=== PATIENT | male | born 1940 | race Caucasian/White ===

== ENCOUNTER 2016-06-14 11:11 | Emergency (ER) | payer MEDICARE, OTHER ==
[2016-06-14] MEDS ORDERED: NORMAL SALINE 1000 ML 1,000 ML IV ONE ×3 (11:24→19:31)
[2016-06-14 12:09] LABS: VENOUS BLOOD BASE EXCESS 2.7 mmol/L; VENOUS BLOOD HCO3 29.5 mmol/L (20-32); VENOUS BLOOD PCO2 55.1 mmHg (35-63); VENOUS BLOOD PH 7.35 (7.30-7.42)
--- NOTE | 2016-06-14 12:15 | ER Document Report ---
ED General - General Chief Complaint: Blood Pressure Problem Stated Complaint: BLOOD PRESSURE ISSUE Time Seen by Provider: 06/14/16 11:23 TRAVEL OUTSIDE OF THE [place] IN LAST 30 DAYS: No - HPI Patient complains to provider of: hypoxia hypotension Notes: Patient's coming in for evaluation of hypoxia and hypotension. Patient recently had a "cholecystectomy performed due to gangrenous gallbladder with constipation of a bile duct leak. Patient was recently discharged home has been on for approximately a week following up with his doctor at [facility] and found patient mildly hypoxic with SPO2 of 92-90 with a blood pressure systolic 80. Patient is also nauseous at the time. No other complaints transported to ER for further evaluation. Upon evaluation patient is on 2 L of oxygen nasal cannula 100% SPO2 with a blood pressure in the 80s. Patient received approximately 200 mL of normal saline on transport. Patient denies any chest pain abdominal pain. Patient does have sutures course to the abdomen with a CHACHA drain and Nolan in place. Patient states he does state that his Nolan is blocked up. Patient is requesting exchange of Nolan. Denies any fever states chills at home. Patient denies any shortness of breath but is tachypneic upon evaluation. - Related Data Allergies/Adverse Reactions: codeine [Codeine] Allergy (Unknown, Verified 11/02/13 20:58) Sweats Past Medical History - Social History Smoking Status: Unknown if Ever Smoked Family History: Reviewed & Not Pertinent - Past Medical History Cardiac Medical History: Reports: Hx Coronary Artery Disease, Hx Heart Attack - 1988 Denies: Hx Hypertension Pulmonary Medical History: Reports: Hx Pneumonia Denies: Hx Asthma, Hx Bronchitis, Hx COPD Neurological Medical History: Denies: Hx Cerebrovascular Accident, Hx Seizures GI Medical History: Denies: Hx Hepatitis, Hx Hiatal Hernia, Hx Ulcer Musculoskeltal Medical History: Reports Hx Arthritis Infectious Medical History: Denies: Hx Hepatitis Past Surgical History: Denies: Hx Open Heart Surgery, Hx Pacemaker - Immunizations Hx Diphtheria, Pertussis, Tetanus Vaccination: Yes Review of Systems - Review of Systems Constitutional: Other - Hypotension hypoxia tachypnea nausea EENT: No symptoms reported Cardiovascular: No symptoms reported Respiratory: No symptoms reported Gastrointestinal: No symptoms reported Genitourinary: No symptoms reported Male Genitourinary: No symptoms reported Musculoskeletal: No symptoms reported Skin: No symptoms reported Hematologic/Lymphatic: No symptoms reported Neurological/Psychological: No symptoms reported Physical Exam - Vital signs Vitals: Resp 33 H 06/14/16 11:25 Interpretation: Normal - General General appearance: Appears well, Alert - HEENT Head: Normocephalic, Atraumatic Eyes: Normal Pupils: PERRL - Respiratory Respiratory status: No respiratory distress Chest status: Nontender Breath sounds: Normal Chest palpation: Normal - Cardiovascular Rhythm: Regular Heart sounds: Normal auscultation Murmur: No - Abdominal Distension: No distension Bowel sounds: Normal Organomegaly: No organomegaly Notes: Patient has "second scar well-healed cover Steri-Strips no blushing the scrotum signs of infection. Patient also has a CHACHA drain in place with scant amount of serous sinus fluid. Abdomen is appropriately tender no rebound no guarding mild tenderness diffuse - Genitourinary Cremasteric reflex: Normal Scrotum: Normal Notes: Nolan catheter in place - Back Back: Normal, Nontender - Extremities General upper extremity: Normal inspection, Nontender, Normal color, Normal ROM , Normal temperature General lower extremity: Normal inspection, Nontender, Normal color, Normal ROM , Normal temperature, Normal weight bearing. No: Hien's sign - Neurological Neuro grossly intact: Yes Cognition: Normal Orientation: AAOx4 Ryder Coma Scale Eye Opening: Spontaneous [place] Coma Scale Verbal: Oriented [place] Coma Scale Motor: Obeys Commands [place] Coma Scale Total: 15 Speech: Normal Motor strength normal: LUE, RUE, LLE, RLE Sensory: Normal - Psychological Associated symptoms: Normal affect, Normal mood - Skin Skin Temperature: Warm Skin Moisture: Dry Skin Color: Normal Course - Re-evaluation Re-evalutation: 06/14/16 12:16 Concern for possible postoperative infection and PE. Patient will undergo a CTA and CT of his abdomen. When for laboratory return. Patient currently afebrile will go ahead and give 2 L bolus and recheck patient's blood pressure 06/14/16 18:33 Patient's lab work does show significant leukocytosis with a left shift however noted bandemia. Workup shows possible UTI however no definitive source of infection was seen. CT of the chest was negative for PE and infection. CT of the abdomen did show posterior changes. Did discuss with our hospital staff recommended patient be transferred back to [facility] with the patient receive his initial surgery. Discussed the surgical team there and hospital staff Dr. Lal graciously accepted the patient in transfer. Otherwise patient has remained stable received a 2 L bolus here. East and 100 range. Patient does still remain on 2 L of oxygen. Management given antibiotics were given Zosyn sent for Sears possible underlying infection. - Vital Signs Vital signs: Temp Pulse Resp BP Pulse Ox 97.7 F 25 H 103/69 92 06/14/16 11:58 06/14/16 17:45 06/14/16 17:45 06/14/16 17:45 - Laboratory Result Diagrams: 06/14/16 11:49 06/14/16 11:49 Laboratory results interpreted by me: 06/14/16 06/14/16 06/14/16 11:49 11:49 13:45 WBC 26.3 H Hgb 13.3 L RDW 14.1 H Seg Neuts % (Manual) 94 H Lymphocytes % (Manual) 0 L Abs Neuts (Manual) 24.7 H Abs Lymphs (Manual) 0.0 L Abs Monocytes (Manual) 1.6 H BUN 22 H Glucose 125 H Direct Bilirubin 0.5 H Urine Protein 30 H Urine Blood LARGE H Ur Leukocyte Esterase TRACE H Critical Care Note - Critical Care Note Total time excluding time spent on procedures (mins): 35 Comments: Multiple evaluations for initial hypotension Discharge - Discharge Clinical Impression: Dehydration, SIRS (systemic inflammatory response syndrome), Status post cholecystectomy Leukocytosis Qualifiers: Leukocytosis type: unspecified Qualified Code(s): D72.829 - Elevated white blood cell count, unspecified Hypotension Qualifiers: Hypotension type: unspecified hypotension type Qualified Code(s): I95.9 - Hypotension, unspecified Condition: Good Disposition: [facility] Referrals: KIA ALCARAZ MD [Primary Care Provider] - Follow up as needed
[2016-06-14 12:16] LABS: HEMATOCRIT 40.6 % (37.9-51.0); HEMOGLOBIN 13.3 g/dL (13.5-17.0); HGB HCT DIFFERENCE -0.7; MEAN CORPUSCULAR HEMOGLOBIN 28.9 pg (27.0-33.4); MEAN CORPUSCULAR HGB CONC 32.7 g/dL (32.0-36.0); MEAN CORPUSCULAR VOLUME 89 fl (80-97); RED BLOOD COUNT 4.58 10^6/uL (4.35-5.55); RED CELL DISTRIBUTION WIDTH 14.1 % (11.5-14.0); WHITE BLOOD COUNT 26.3 10^3/uL (4.0-10.5)
[2016-06-14] MEDS ORDERED: PIPERACILLIN/TAZOBACTAM 4.5 GM VIAL IV ONE (12:37)
[2016-06-14 12:48] LABS: ALANINE AMINOTRANSFERASE 51 U/L (21-72); ALBUMIN 3.6 g/dL (3.5-5.0); ALKALINE PHOSPHATASE 112 U/L (38-126); ANION GAP 9 (5-19); ASPARTATE AMINO TRANSFERASE 42 U/L (17-59); BILIRUBIN,DIRECT 0.5 mg/dL (0.0-0.4); BILIRUBIN,TOTAL 0.9 mg/dL (0.2-1.3); BLOOD UREA NITROGEN 22 mg/dL (7-20); CALCIUM 8.7 mg/dL (8.4-10.2); CARBON DIOXIDE 25 mmol/L (22-30); CHLORIDE 104 mmol/L (98-107); CREATININE RESULT 1.12 mg/dL (0.52-1.25); GLUCOSE 125 mg/dL (75-110); POTASSIUM 4.5 mmol/L (3.6-5.0); SODIUM 138.4 mmol/L (137-145)
[2016-06-14 12:50] LABS: BASOPHILS % (MANUAL) 0 % (0-2); EOSINOPHILS % (MANUAL) 0 % (0-6); LYMPHOCYTES % (MANUAL) 0 % (13-45); TOTAL CELLS COUNTED 100
[2016-06-14 12:51] LABS: RBC MORPHOLOGY COMMENT NORMO-CYTIC/CHROMIC
[2016-06-14 14:14] LABS: APPEARANCE,URINE SLIGHTLY-CLOUDY; BILIRUBIN,URINE NEGATIVE (NEGATIVE); GLUCOSE, URINE NEGATIVE (NEGATIVE); KETONES,URINE NEGATIVE (NEGATIVE); LEUKOCYTE ESTERASE,URINE TRACE (NEGATIVE); NITRITE,URINE NEGATIVE (NEGATIVE); PROTEIN,URINE 30 mg/dL (NEGATIVE); URINE SPECIFIC GRAVITY 1.046; UROBILINOGEN,URINE NEGATIVE mg/dL (<2.0)
--- NOTE | 2016-06-14 17:07 | EKG REPORT ---
SEVERITY:- ABNORMAL ECG - SINUS RHYTHM RIGHT BUNDLE BRANCH BLOCK : Confirmed by: Dorina Moser 14-Jun-2016 17:06:28
[2016-06-14] MEDS ORDERED: PIPERACILLIN/TAZOBACTAM 4.5 GM VIAL IV SCH (19:30)
[2016-06-14] MEDS ORDERED: ONDANSETRON HCL INJ/PF 4 MG/2 ML SDV IV ONE (20:35)
[2016-06-15] MEDS: ONDANSETRON HCL INJ/PF 4 MG/2 ML SDV IV PRN ×2 (03:45→07:43)
[2016-06-15] MEDS: PIPERACILLIN/TAZOBACTAM 4.5 GM VIAL IV SCH ×2 (03:55→10:26)
[2016-06-15 09:27] LABS: ABSOLUTE EOSINOPHILS # (AUTO) 0.1 10^3/uL (0.0-0.6); ABSOLUTE LYMPHOCYTES (AUTO) 0.6 10^3/uL (0.5-4.7); ABSOLUTE MONOCYTES (AUTO) 1.4 10^3/uL (0.1-1.4); ABSOLUTE NEUT (AUTO) 8.2 10^3/uL (1.7-8.2); BASOPHILS % (AUTO) 0.4 % (0-2); EOSINOPHILS % (AUTO) 1.3 % (0-6); HEMATOCRIT 36.3 % (37.9-51.0); HEMOGLOBIN 11.8 g/dL (13.5-17.0); HGB HCT DIFFERENCE -0.9; LYMPHOCYTES % (AUTO) 6.2 % (13-45); MEAN CORPUSCULAR HEMOGLOBIN 28.9 pg (27.0-33.4); MEAN CORPUSCULAR HGB CONC 32.6 g/dL (32.0-36.0); MEAN CORPUSCULAR VOLUME 89 fl (80-97); MONOCYTES % (AUTO) 13.7 % (3-13); RED BLOOD COUNT 4.09 10^6/uL (4.35-5.55); RED CELL DISTRIBUTION WIDTH 14.2 % (11.5-14.0); SEGMENTED NEUTROPHILS % (AUTO) 78.4 % (42-78); WHITE BLOOD COUNT 10.4 10^3/uL (4.0-10.5)
[2016-06-15 09:45] LABS: ALANINE AMINOTRANSFERASE 44 U/L (21-72); ALKALINE PHOSPHATASE 78 U/L (38-126); ANION GAP 8 (5-19); ASPARTATE AMINO TRANSFERASE 32 U/L (17-59); BILIRUBIN,DIRECT 0.5 mg/dL (0.0-0.4); BILIRUBIN,TOTAL 0.7 mg/dL (0.2-1.3); BLOOD UREA NITROGEN 16 mg/dL (7-20); CALCIUM 7.8 mg/dL (8.4-10.2); CARBON DIOXIDE 24 mmol/L (22-30); CHLORIDE 107 mmol/L (98-107); CREATININE RESULT 0.88 mg/dL (0.52-1.25); GLUCOSE 87 mg/dL (75-110); POTASSIUM 4.4 mmol/L (3.6-5.0); SODIUM 139.1 mmol/L (137-145)
[2016-06-15] MEDS ORDERED: ONDANSETRON 4 MG TAB.RAPDIS PO PRN (10:33)
[2016-06-15] MEDS ORDERED: OXYCODONE-ACETAMINOPHEN 5-325 MG TABLET PO PRN (10:33)
[2016-06-15] MEDS ORDERED: MULTIVITAMIN TABLET PO ONE (11:00)
[2016-06-15] MEDS ORDERED: METOPROLOL TARTRATE 50 MG TABLET PO ONE (11:00)
[2016-06-15] MEDS ORDERED: ASPIRIN 81 MG TABLET, CHEWABLE PO ONE (11:00)
[2016-06-15] MEDS ORDERED: ASCORBIC ACID 500 MG TABLET PO ONE (11:00)
[2016-06-15] MEDS ORDERED: NIACIN 500 MG TABLET.SA PO ONE (11:00)
[2016-06-15] MEDS ORDERED: VITAMIN E (DL, ACETATE) 400 UNIT CAPSULE PO ONE (11:00)
[2016-06-15 12:37] VITALS: BP 123/70
[2016-06-15] MEDS ORDERED: METOPROLOL TARTRATE 50 MG TABLET PO SCH (22:00)
[2016-06-15] MEDS ORDERED: ATORVASTATIN CALCIUM 20 MG TABLET PO SCH (22:00)
[2016-06-16] MEDS ORDERED: ASCORBIC ACID 500 MG TABLET PO SCH (10:00)
[2016-06-16] MEDS ORDERED: ASPIRIN 81 MG TABLET, CHEWABLE PO SCH (10:00)
[2016-06-16] MEDS ORDERED: VITAMIN E (DL, ACETATE) 400 UNIT CAPSULE PO SCH (10:00)
[2016-06-16] MEDS ORDERED: MULTIVITAMIN TABLET PO SCH (10:00)
[2016-06-16] MEDS ORDERED: NIACIN 500 MG TABLET.SA PO SCH (10:00)
[2016-06-16] MEDS ORDERED: VITAMIN E PO SCH (10:00)
[2016-06-16] MEDS ORDERED: UBIDECARENONE PO SCH (10:00)
[2016-06-16] MEDS ORDERED: (PENDING PHARMACY ID) (Multivitamin [Multivitamins] 1 CAP) PO SCH (10:00)
[2016-06-16] MEDS ORDERED: NIACIN PO SCH (10:00)
[2016-06-16] MEDS ORDERED: (PENDING PHARMACY ID) (B2/Vit A,C & E/Lut/Zeaxanth/Mn [Icaps Tablet] 1 TAB) PO SCH (10:00)
== END 2016-06-15 13:01 | disposition short-term general hospital (02) ==
LOC: ER 11:11
DX: E86.0 Dehydration (principal); R65.10 Systemic inflammatory response syndrome (SIRS) of non-infectious origin without acute organ dysfunction; D72.829 Elevated white blood cell count, unspecified; I95.9 Hypotension, unspecified; R09.02 Hypoxemia; R11.0 Nausea; I25.10 Atherosclerotic heart disease of native coronary artery without angina pectoris; Z90.49 Acquired absence of other specified parts of digestive tract; I25.2 Old myocardial infarction; Z88.6 Allergy status to analgesic agent
CPT/HCPCS: 93005; 96376; 99291; 96361; 96375; 96365; 96366; 36415; 87040; 87086; 83690; 85025; 80053; 81001; 84484; 82803; 83605; 71275; 74177; 93010; J2405 ×2; J7030 ×2; J2543 ×2

== ENCOUNTER → 2017-04-04 | Outpatient (CLI) | payer MEDICARE, OTHER ==
--- NOTE | 2017-04-04 16:27 | RADIOLOGY REPORT (SQ) ---
EXAM DESCRIPTION: SHOULDER LEFT 2 OR MORE VIEWS COMPLETED DATE/TIME: 04/04/2017 2:56 pm REASON FOR STUDY: PAIN IN LEFT SHOULDER M25.512 PAIN IN LEFT SHOULDER COMPARISON: None. NUMBER OF VIEWS: Three views. TECHNIQUE: Internal rotation, external rotation, and Y view images acquired of the left shoulder. LIMITATIONS: None. FINDINGS: MINERALIZATION: Normal. BONES: No acute fracture or dislocation. No worrisome bone lesions. JOINTS: No dislocation. Mild degenerative changes involving the AC joint and glenohumeral joint. VISUALIZED LUNGS AND RIBS: Small band of atelectasis or scarring in the left mid lung SOFT TISSUES: No radiopaque foreign body. OTHER: No other significant finding. IMPRESSION: Mild degenerative changes involving the left shoulder. TECHNICAL DOCUMENTATION: JOB ID: [id number] [employer] All Rights Reserved Reading location - IP/workstation name: [email or web address]
== END ==
LOC: OD 14:32
PROVIDERS: ATTEND Physician Assistant
DX: M25.512 Pain in left shoulder (principal)

== ENCOUNTER 2017-09-28 12:56 | Inpatient (IN) | payer MEDICARE, OTHER ==
--- NOTE | 2017-09-28 13:33 | ER Document Report ---
ED Medical Screen (RME) - General Chief Complaint: Sinus Congestion Stated Complaint: COLD Time Seen by Provider: 09/28/17 13:29 TRAVEL OUTSIDE OF THE [place] IN LAST 30 DAYS: No - HPI Notes: 09/28/17 13:32 Patient is a patel from PCP outpatient chest x-ray showing pneumonia and states recurrent pneumonia multiple times this year last antibiotics was in August - Related Data Allergies/Adverse Reactions: codeine [Codeine] Allergy (Unknown, Verified 09/28/17 12:57) Sweats Past Medical History - Past Medical History Cardiac Medical History: Reports: Hx Coronary Artery Disease, Hx Heart Attack - 1988 Denies: Hx Hypertension Pulmonary Medical History: Reports: Hx Pneumonia Denies: Hx Asthma, Hx Bronchitis, Hx COPD Neurological Medical History: Denies: Hx Cerebrovascular Accident, Hx Seizures GI Medical History: Denies: Hx Hepatitis, Hx Hiatal Hernia, Hx Ulcer Musculoskeltal Medical History: Reports Hx Arthritis Infectious Medical History: Denies: Hx Hepatitis Past Surgical History: Reports: Hx Bowel Surgery - part of colon removed. Denies: Hx Open Heart Surgery, Hx Pacemaker - Immunizations Hx Diphtheria, Pertussis, Tetanus Vaccination: Yes Review of Systems - Review of Systems Respiratory: Cough Physical Exam - Vital signs Vitals: Temp Pulse Resp BP Pulse Ox 97.5 F 56 L 20 143/66 H 96 09/28/17 13:00 09/28/17 13:00 09/28/17 13:00 09/28/17 13:00 09/28/17 13:00 - Respiratory Respiratory status: No respiratory distress Chest status: Nontender Chest palpation: Normal - Cardiovascular Rhythm: Regular Heart sounds: Normal auscultation Course - Vital Signs Vital signs: Temp Pulse Resp BP Pulse Ox 97.5 F 56 L 20 143/66 H 96 09/28/17 13:22 09/28/17 13:22 09/28/17 13:22 09/28/17 13:22 09/28/17 13:22 Doctor's Discharge - Discharge Referrals: KIA ALCARAZ MD [Primary Care Provider] - Follow up as needed
[2017-09-28 14:08] LABS: ABSOLUTE BASOPHILS # (AUTO) 0.1 10^3/uL (0.0-0.2); ABSOLUTE EOSINOPHILS # (AUTO) 0.2 10^3/uL (0.0-0.6); ABSOLUTE LYMPHOCYTES (AUTO) 0.8 10^3/uL (0.5-4.7); ABSOLUTE MONOCYTES (AUTO) 1.8 10^3/uL (0.1-1.4); ABSOLUTE NEUT (AUTO) 10.4 10^3/uL (1.7-8.2); BASOPHILS % (AUTO) 1.1 % (0-2); EOSINOPHILS % (AUTO) 1.2 % (0-6); HEMATOCRIT 49.7 % (37.9-51.0); HEMOGLOBIN 16.6 g/dL (13.5-17.0); LYMPHOCYTES % (AUTO) 5.8 % (13-45); MEAN CORPUSCULAR HEMOGLOBIN 29.9 pg (27.0-33.4); MEAN CORPUSCULAR HGB CONC 33.4 g/dL (32.0-36.0); MEAN CORPUSCULAR VOLUME 90 fl (80-97); MONOCYTES % (AUTO) 13.7 % (3-13); PLATELET COUNT 222 10^3/uL (150-450); RED BLOOD COUNT 5.55 10^6/uL (4.35-5.55); RED CELL DISTRIBUTION WIDTH 13.9 % (11.5-14.0); SEGMENTED NEUTROPHILS % (AUTO) 78.2 % (42-78); TOTAL CELLS COUNTED % (AUTO) 100 %; WHITE BLOOD COUNT 13.4 10^3/uL (4.0-10.5)
[2017-09-28 14:25] LABS: ALANINE AMINOTRANSFERASE 23 U/L (21-72); ALBUMIN 4.6 g/dL (3.5-5.0); ALKALINE PHOSPHATASE 125 U/L (38-126); ANION GAP 15 (5-19); ASPARTATE AMINO TRANSFERASE 26 U/L (17-59); BILIRUBIN,DIRECT 0.4 mg/dL (0.0-0.4); BILIRUBIN,TOTAL 0.7 mg/dL (0.2-1.3); BLOOD UREA NITROGEN 18 mg/dL (7-20); CALCIUM 9.7 mg/dL (8.4-10.2); CARBON DIOXIDE 27 mmol/L (22-30); CHLORIDE 101 mmol/L (98-107); GLUCOSE 109 mg/dL (75-110); POTASSIUM 4.8 mmol/L (3.6-5.0); SODIUM 142.6 mmol/L (137-145); TOTAL PROTEIN 9.1 g/dL (6.3-8.2)
[2017-09-28] MEDS ORDERED: IPRATROPIUM/ALBUTEROL 0.5-2.5 MG/3 ML AMPUL NEB ONE ×2 (14:28→15:04)
--- NOTE | 2017-09-28 14:29 | ER Document Report ---
ED General - General Chief Complaint: Sinus Congestion Stated Complaint: COLD Time Seen by Provider: 09/28/17 13:29 Mode of Arrival: Ambulatory Information source: Patient Notes: This is a 77-year-old man with a history of a cardiomyopathy, long history of smoking, recurrent episodes of pneumonia, presents to the emergency room with shortness of breath, dyspnea on exertion, productive cough and sinus congestion. TRAVEL OUTSIDE OF THE [place] IN LAST 30 DAYS: No - HPI Onset: Last week Onset/Duration: Gradual Quality of pain: No pain Severity: None Pain Level: Denies Associated symptoms: denies: Nonproductive cough, Productive cough, Shortness of breath Exacerbated by: Denies Relieved by: Denies Similar symptoms previously: No Recently seen / treated by doctor: No - Related Data Allergies/Adverse Reactions: codeine [Codeine] Allergy (Unknown, Verified 09/28/17 12:57) Sweats Past Medical History - General Information source: Patient - Social History Smoking Status: Former Smoker Cigarette use (# per day): No - Quit many years ago Chew tobacco use (# tins/day): No Frequency of alcohol use: None Drug Abuse: None Lives with: Family Family History: Reviewed & Not Pertinent Patient has suicidal ideation: No Patient has homicidal ideation: No - Past Medical History Cardiac Medical History: Reports: Hx Coronary Artery Disease, Hx Heart Attack - 1988 Denies: Hx Hypertension Pulmonary Medical History: Reports: Hx Pneumonia Denies: Hx Asthma, Hx Bronchitis, Hx COPD Neurological Medical History: Denies: Hx Cerebrovascular Accident, Hx Seizures Renal/ Medical History: Denies: Hx Peritoneal Dialysis GI Medical History: Denies: Hx Hepatitis, Hx Hiatal Hernia, Hx Ulcer Musculoskeletal Medical History: Reports Hx Arthritis Infectious Medical History: Denies: Hx Hepatitis Past Surgical History: Reports: Hx Bowel Surgery - part of colon removed. Denies: Hx Open Heart Surgery, Hx Pacemaker - Immunizations Hx Diphtheria, Pertussis, Tetanus Vaccination: Yes Review of Systems - Review of Systems Constitutional: denies: Chills, Fever EENT: No symptoms reported Cardiovascular: See HPI, Dyspnea, Other - Chest tightness. denies: Palpitations , Heart racing Respiratory: See HPI, Short of breath, Wheezing Gastrointestinal: No symptoms reported Genitourinary: No symptoms reported Male Genitourinary: No symptoms reported Musculoskeletal: No symptoms reported Skin: No symptoms reported Hematologic/Lymphatic: No symptoms reported Neurological/Psychological: No symptoms reported Physical Exam - Vital signs Vitals: Temp Pulse Resp BP Pulse Ox 97.5 F 56 L 20 143/66 H 96 09/28/17 13:00 09/28/17 13:00 09/28/17 13:00 09/28/17 13:00 09/28/17 13:00 Notes: Physical exam: GENERAL: 77-year-old man, alert and oriented 3, appears short of breath. Oxygen saturation 96% while resting in the bed, he does appear significantly short of breath on just minimal ambulation around the ER with an oxygen saturation dropping to 87% on room air HEAD: Atraumatic, normocephalic. EYES: Pupils equal round and reactive to light, extraocular movements intact, sclera anicteric, conjunctiva are normal. ENT: TMs normal, nares patent, oropharynx clear without exudates. Moist mucous membranes. NECK: Normal range of motion, supple without obvious mass or JVD. LUNGS: Lateral wheezing and rhonchi HEART: Regular rate and rhythm without murmurs, rubs or gallops. ABDOMEN: Soft, normoactive bowel sounds. No tenderness to palpation. No guarding, no rebound. No masses appreciated. EXTREMITIES: Normal range of motion, no pitting or edema. No clubbing or cyanosis. NEUROLOGICAL: Cranial nerves II through XII grossly intact. Normal speech, moving all extremities. PSYCH: Normal mood, normal affect. SKIN: Warm, Dry, normal turgor, no rashes or lesions noted. Course - Vital Signs Vital signs: Temp Pulse Resp BP Pulse Ox 97.9 F 58 L 19 139/67 H 97 09/28/17 18:52 09/28/17 18:52 09/28/17 18:52 09/28/17 18:52 09/28/17 18:52 - Laboratory Result Diagrams: 09/28/17 13:50 09/28/17 13:50 Laboratory results interpreted by me: 09/28/17 09/28/17 13:50 13:50 WBC 13.4 H Seg Neutrophils % 78.2 H Lymphocytes % 5.8 L Monocytes % 13.7 H Absolute Neutrophils 10.4 H Absolute Monocytes 1.8 H Total Protein 9.1 H - Diagnostic Test Radiology reviewed: Image reviewed, Reports reviewed - X-ray shows no obvious infiltrates - EKG Interpretation by Me Rate: Normal Rhythm: NSR - EKG shows normal sinus rhythm with a ventricular rate of 80, left anterior fascicular block, PVCs, no acute ST-T wave changes Discharge - Discharge Clinical Impression: COPD exacerbation Condition: Stable Disposition: ADMITTED INPATIENT Admitting Provider: Hospitalist - Dr Solis Unit Admitted: Telemetry
--- NOTE | 2017-09-28 14:44 | RADIOLOGY REPORT (SQ) ---
EXAM DESCRIPTION: CHEST 2 VIEWS COMPLETED DATE/TIME: 09/28/2017 2:17 pm REASON FOR STUDY: cold cough eval pna COMPARISON: October 2013 EXAM PARAMETERS: NUMBER OF VIEWS: two views TECHNIQUE: Digital Frontal and Lateral radiographic views of the chest acquired. RADIATION DOSE: NA LIMITATIONS: none FINDINGS: LUNGS AND PLEURA: No opacities, masses or pneumothorax. No pleural effusion. Linear scarr ing or subsegmental atelectasis is identified in the left mid lung feel P MEDIASTINUM AND HILAR STRUCTURES: No masses or contour abnormalities. HEART AND VASCULAR STRUCTURES: Heart normal size. No evidence for failure. BONES: No acute findings. HARDWARE: None in the chest. OTHER: No other significant finding. IMPRESSION: NO ACUTE RADIOGRAPHIC FINDING IN THE CHEST. TECHNICAL DOCUMENTATION: JOB ID: [id number] [employer]- All Rights Reserved Reading location - IP/workstation name: [email or web address]
[2017-09-28] MEDS ORDERED: ACETAMINOPHEN 325 MG TABLET PO ONE (14:49)
[2017-09-28] MEDS ORDERED: METHYLPREDNISOLONE INJ 125 MG/2 ML SDV IV ONE (15:03)
[2017-09-28] MEDS ORDERED: CEFTRIAXONE 1 GM/D5W RTU 1 GM/50 ML RTUPB IV ONE (15:04)
[2017-09-28] MEDS ORDERED: CEFTRIAXONE INJ 1000 MG VIAL ONE (15:21)
[2017-09-28] MEDS ORDERED: TEMAZEPAM 7.5 MG CAPSULE PO PRN (16:28)
[2017-09-28] MEDS ORDERED: MAG HYDROX/AL HYDROX/SIMETH SUSP 30 ML UDCUP PO PRN (16:28)
[2017-09-28] MEDS ORDERED: ACETAMINOPHEN 325 MG TABLET PO PRN (16:28)
[2017-09-28] MEDS ORDERED: OXYCODONE-ACETAMINOPHEN 5-325 MG TABLET PO PRN (16:28)
[2017-09-28] MEDS ORDERED: PROMETHAZINE HCL INJ 25 MG/1 ML VIAL IV PRN (16:28)
[2017-09-28] MEDS ORDERED: IPRATROPIUM/ALBUTEROL 0.5-2.5 MG/3 ML AMPUL NEB PRN (16:35)
--- NOTE | 2017-09-28 16:47 | PDOC H&P ---
History of Present Illness Admission Date/PCP: 09/28/17 15:40 KIA ALCARAZ MD Patient complains of: As into the emergency room with complaints of difficulty breathing and shortness of breath History of Present Illness: YULY RODRIGUEZ is a 77 year old male Patient presents with complains of difficulty breathing and shortness of breath. Said this had been going on for a few days but has recently gotten worse. He has a history of sinusitis but currently denies any chest pain nausea vomiting. He has a history of underlying coronary artery disease but said he had a recent cardiology workup including cardiac cath and he was told that he did not need a stent at this time. He denies any fever, dizziness, nausea vomiting Past Medical History Cardiac Medical History: Reports: Coronary Artery Disease, Myocardial Infarction - 1988 Denies: Hypertension Pulmonary Medical History: Reports: Pneumonia Denies: Asthma, Bronchitis, Chronic Obstructive Pulmonary Disease (COPD) Neurological Medical History: Denies: Seizures GI Medical History: Denies: Hepatitis, Hiatal Hernia Musculoskeltal Medical History: Reports: Arthritis Hematology: Denies: Anemia, Sickle Cell Disease Past Surgical History Past Surgical History: Denies: Pacemaker Social History Information Source: Patient Smoking Status: Former Smoker - Advance Directive Resuscitation Status: Full Code Family History Family History: Reviewed & Not Pertinent Parental Family History Reviewed: No Children Family History Reviewed: Yes Sibling(s) Family History Reviewed.: Yes Medication/Allergy Home Medications: Ascorbic Acid [Vitamin C] 1,000 mg PO DAILY 09/28/17 Aspirin [Aspirin EC] 81 mg PO DAILY 09/28/17 Furosemide [Lasix 20 mg Tablet] 20 mg PO DAILY 09/28/17 Gemfibrozil [Lopid 600 mg Tablet] 600 mg PO Q12 09/28/17 Lisinopril [Zestril] 5 mg PO DAILY 09/28/17 Metoprolol Tartrate [Lopressor 50 mg Tablet] 50 mg PO Q12 09/28/17 Multivitamin [Multiple Vitamins] 1 tab PO DAILY 09/28/17 Omeprazole 40 mg PO DAILY 09/28/17 Potassium Chloride [Klor-Con 10 Meq Capsule ER] 10 meq PO DAILY 09/28/17 Vit A/Vit C/Vit E/Zinc/Copper [Preservision Areds Tablet] 1 tab PO DAILY Vitamin E Mixed [Vitamin E] 400 unit PO DAILY 09/28/17 Allergies/Adverse Reactions: codeine [Codeine] Allergy (Unknown, Verified 09/28/17 12:57) Sweats Review of Systems All systems: reviewed and no additional remarkable complaints except as stated Physical Exam Vital Signs: Temp Pulse Resp BP Pulse Ox 97.5 F 56 L 20 143/66 H 96 09/28/17 13:22 09/28/17 13:22 09/28/17 13:22 09/28/17 13:22 09/28/17 13:22 General appearance: PRESENT: no acute distress, well-developed, well-nourished Head exam: PRESENT: atraumatic, normocephalic Eye exam: PRESENT: conjunctiva pink, EOMI, PERRLA. ABSENT: scleral icterus Ear exam: PRESENT: normal external ear exam Mouth exam: PRESENT: moist, tongue midline Neck exam: ABSENT: carotid bruit, JVD, lymphadenopathy, thyromegaly Respiratory exam: PRESENT: decreased breath sounds, symmetrical, unlabored. ABSENT: rales, rhonchi, wheezes Cardiovascular exam: PRESENT: RRR. ABSENT: diastolic murmur, rubs, systolic murmur Pulses: PRESENT: normal dorsalis pedis pul Vascular exam: PRESENT: normal capillary refill GI/Abdominal exam: PRESENT: normal bowel sounds, soft. ABSENT: distended, guarding, mass, organolmegaly, rebound, tenderness Rectal exam: PRESENT: deferred Extremities exam: PRESENT: full ROM. ABSENT: calf tenderness, clubbing, pedal edema Neurological exam: PRESENT: alert, awake, oriented to person, oriented to place , oriented to time, oriented to situation, CN II-XII grossly intact. ABSENT: motor sensory deficit Psychiatric exam: PRESENT: appropriate affect, normal mood. ABSENT: homicidal ideation, suicidal ideation Skin exam: PRESENT: dry, intact, warm. ABSENT: cyanosis, rash Results Laboratory Results: 09/28/17 13:50 09/28/17 13:50 MCV 90 fl (80-97) 09/28/17 13:50 MCH 29.9 pg (27.0-33.4) 09/28/17 13:50 MCHC 33.4 g/dL (32.0-36.0) 09/28/17 13:50 RDW 13.9 % (11.5-14.0) 09/28/17 13:50 Seg Neutrophils % 78.2 % (42-78) H 09/28/17 13:50 Lymphocytes % 5.8 % (13-45) L 09/28/17 13:50 Monocytes % 13.7 % (3-13) H 09/28/17 13:50 Eosinophils % 1.2 % (0-6) 09/28/17 13:50 Basophils % 1.1 % (0-2) 09/28/17 13:50 Absolute Neutrophils 10.4 10^3/uL (1.7-8.2) H 09/28/17 13:50 Absolute Lymphocytes 0.8 10^3/uL (0.5-4.7) 09/28/17 13:50 Absolute Monocytes 1.8 10^3/uL (0.1-1.4) H 09/28/17 13:50 Absolute Eosinophils 0.2 10^3/uL (0.0-0.6) 09/28/17 13:50 Absolute Basophils 0.1 10^3/uL (0.0-0.2) 09/28/17 13:50 Chloride 101 mmol/L (98-107) 09/28/17 13:50 Carbon Dioxide 27 mmol/L (22-30) 09/28/17 13:50 Anion Gap 15 (5-19) 09/28/17 13:50 Est GFR ( Amer) > 60 (>60) 09/28/17 13:50 Est GFR (Non-Af Amer) > 60 (>60) 09/28/17 13:50 Glucose 109 mg/dL (75-110) 09/28/17 13:50 Calcium 9.7 mg/dL (8.4-10.2) 09/28/17 13:50 Magnesium 1.9 mg/dL (1.6-2.3) 09/28/17 13:50 Total Bilirubin 0.7 mg/dL (0.2-1.3) 09/28/17 13:50 AST 26 U/L (17-59) 09/28/17 13:50 ALT 23 U/L (21-72) 09/28/17 13:50 Alkaline Phosphatase 125 U/L (38-126) 09/28/17 13:50 Total Protein 9.1 g/dL (6.3-8.2) H 09/28/17 13:50 Albumin 4.6 g/dL (3.5-5.0) 09/28/17 13:50 Impressions: Chest X-Ray 09/28/17 13:31 IMPRESSION: NO ACUTE RADIOGRAPHIC FINDING IN THE CHEST. Assessment & Plan - Diagnosis (1) COPD exacerbation Is this a current diagnosis for this admission?: Yes Plan: We will treat with steroids IV as well as bronchodilators. Patient has a remote history of smoking but says he does not smoke anymore (2) Acute respiratory failure Qualifiers: Respiratory failure complication: hypoxia Qualified Code(s): J96.01 - Acute respiratory failure with hypoxia Is this a current diagnosis for this admission?: Yes Plan: Secondary to COPD says it never been diagnosed with COPD however has a 50-pack- year smoking history. Will continue with oxygen support as needed - Time Time Spent: 30 to 50 Minutes Medications reviewed and adjusted accordingly: Yes Anticipated discharge: Home Within: within 72 hours - Inpatient Certification Based on my medical assessment, after consideration of the patient's comorbidities, presenting symptoms, or acuity I expect that the services needed warrant INPATIENT care.: Yes Medical Necessity: Need for Nebulizer Therapy and Monitoring of Response, Risk of Complication if Not Cared For in Hospital
[2017-09-28] MEDS ORDERED: ENOXAPARIN SODIUM INJ 40 MG/0.4 ML DISP.SYRIN SUBCUT ONE (17:00)
[2017-09-28] MEDS ORDERED: CEFTRIAXONE SODIUM 1,000 MG in NORMAL SALINE 50 ML IV SCH (18:00)
[2017-09-28] MEDS: IPRATROPIUM/ALBUTEROL 0.5-2.5 MG/3 ML AMPUL NEB SCH (22:04)
[2017-09-28] MEDS: GEMFIBROZIL 600 MG TABLET PO SCH (22:30)
[2017-09-28] MEDS: METOPROLOL TARTRATE 50 MG TABLET PO SCH (22:30)
[2017-09-28] MEDS: METHYLPREDNISOLONE INJ 40 MG/1 ML SDV IV SCH (22:30)
[2017-09-28] MEDS: FAMOTIDINE 20 MG TABLET PO SCH (22:39)
[2017-09-29] MEDS: METHYLPREDNISOLONE INJ 40 MG/1 ML SDV IV SCH (05:12)
[2017-09-29 05:29] LABS: HEMATOCRIT 43.5 % (37.9-51.0); MEAN CORPUSCULAR HEMOGLOBIN 30.7 pg (27.0-33.4); MEAN CORPUSCULAR HGB CONC 34.5 g/dL (32.0-36.0); MEAN CORPUSCULAR VOLUME 89 fl (80-97); PLATELET COUNT 139 10^3/uL (150-450); RED CELL DISTRIBUTION WIDTH 13.6 % (11.5-14.0)
[2017-09-29 05:53] LABS: ANION GAP 14 (5-19); BLOOD UREA NITROGEN 21 mg/dL (7-20); CALCIUM 9.2 mg/dL (8.4-10.2); CARBON DIOXIDE 23 mmol/L (22-30); CHLORIDE 103 mmol/L (98-107); GLUCOSE 166 mg/dL (75-110); POTASSIUM 4.6 mmol/L (3.6-5.0); SODIUM 140.3 mmol/L (137-145)
[2017-09-29] MEDS: IPRATROPIUM/ALBUTEROL 0.5-2.5 MG/3 ML AMPUL NEB SCH ×3 (08:34→20:08)
--- NOTE | 2017-09-29 09:11 | EKG REPORT ---
SEVERITY:- ABNORMAL ECG - SINUS RHYTHM VENTRICULAR BIGEMINY RIGHT BUNDLE BRANCH BLOCK PROBABLE INFERIOR INFARCT, AGE INDETERMINATE : Confirmed by: Dorina Moser 29-Sep-2017 09:11:03
[2017-09-29] MEDS ORDERED: CEFTRIAXONE 1 GM/D5W RTU 1 GM/50 ML RTUPB IV SCH (10:00)
[2017-09-29] MEDS: FAMOTIDINE 20 MG TABLET PO SCH ×2 (10:19→21:53)
[2017-09-29] MEDS: ASCORBIC ACID 500 MG TABLET PO SCH (10:19)
[2017-09-29] MEDS: BENZOCAINE/MENTHOL SORE THROAT LOZENGE BUCCAL PRN ×2 (10:19→21:53)
[2017-09-29] MEDS: METOPROLOL TARTRATE 50 MG TABLET PO SCH ×2 (10:19→21:53)
[2017-09-29] MEDS: DOCUSATE SODIUM 100 MG CAPSULE PO SCH (10:20)
[2017-09-29] MEDS: MULTIVITAMIN TABLET PO SCH (10:20)
[2017-09-29] MEDS: GEMFIBROZIL 600 MG TABLET PO SCH ×2 (10:20→21:53)
[2017-09-29] MEDS: ASPIRIN 81 MG TABLET, ENT COATED PO SCH (10:20)
[2017-09-29] MEDS: LISINOPRIL 5 MG TABLET PO SCH (10:20)
[2017-09-29] MEDS: FUROSEMIDE 20 MG TABLET PO SCH (10:21)
[2017-09-29] MEDS: ENOXAPARIN SODIUM INJ 40 MG/0.4 ML DISP.SYRIN SUBCUT SCH (10:22)
--- NOTE | 2017-09-29 14:21 | PDOC PROGRESS REPORT ---
Subjective Progress Note for:: 09/29/17 Subjective:: Patient was admitted with difficulty breathing and shortness of breath. He was thought to have a COPD exacerbation although patient denies any prior history of COPD. He does have a 50 year smoking history. He feels much better today. Still feels short of breath but improved. Reason For Visit: ACUTE RESPIRATORY FAILURE, COPD Physical Exam Vital Signs: Temp Pulse Resp BP Pulse Ox 98.3 F 81 14 121/74 94 09/29/17 11:30 09/29/17 13:41 09/29/17 13:41 09/29/17 11:30 09/29/17 13:41 Intake & Output 09/28/17 09/29/17 09/30/17 06:59 06:59 06:59 Intake Total 592 Balance 592 Weight 85 kg General appearance: PRESENT: no acute distress, well-developed, well-nourished Head exam: PRESENT: atraumatic, normocephalic Eye exam: PRESENT: conjunctiva pink, EOMI, PERRLA. ABSENT: scleral icterus Ear exam: PRESENT: normal external ear exam Mouth exam: PRESENT: moist, tongue midline Neck exam: ABSENT: carotid bruit, JVD, lymphadenopathy, thyromegaly Respiratory exam: PRESENT: clear to auscultation thong. ABSENT: rales, rhonchi, wheezes Cardiovascular exam: PRESENT: RRR. ABSENT: diastolic murmur, rubs, systolic murmur Pulses: PRESENT: normal dorsalis pedis pul Vascular exam: PRESENT: normal capillary refill GI/Abdominal exam: PRESENT: normal bowel sounds, soft. ABSENT: distended, guarding, mass, organolmegaly, rebound, tenderness Rectal exam: PRESENT: deferred Extremities exam: PRESENT: full ROM. ABSENT: calf tenderness, clubbing, pedal edema Neurological exam: PRESENT: alert, awake, oriented to person, oriented to place , oriented to time, oriented to situation, CN II-XII grossly intact. ABSENT: motor sensory deficit Psychiatric exam: PRESENT: appropriate affect, normal mood. ABSENT: homicidal ideation, suicidal ideation Skin exam: PRESENT: dry, intact, warm. ABSENT: cyanosis, rash Results Laboratory Results: 09/29/17 04:44 09/29/17 04:44 09/29/17 09/29/17 04:44 04:44 WBC 11.0 H RBC 4.90 Hgb 15.0 Hct 43.5 MCV 89 MCH 30.7 MCHC 34.5 RDW 13.6 Plt Count 139 L Sodium 140.3 Potassium 4.6 Chloride 103 Carbon Dioxide 23 Anion Gap 14 BUN 21 H Creatinine 0.78 Est GFR ( Amer) > 60 Est GFR (Non-Af Amer) > 60 Glucose 166 H Calcium 9.2 Impressions: Chest X-Ray 09/28/17 13:31 IMPRESSION: NO ACUTE RADIOGRAPHIC FINDING IN THE CHEST. Assessment & Plan - Diagnosis (1) COPD exacerbation Is this a current diagnosis for this admission?: Yes Plan: We will taper steroids and monitor overnight. (2) Acute respiratory failure Qualifiers: Respiratory failure complication: hypoxia Qualified Code(s): J96.01 - Acute respiratory failure with hypoxia Is this a current diagnosis for this admission?: Yes Plan: Will ambulate and check his oxygen. It is unclear if he will need home oxygen we will keep an eye out for this. - Time Time Spent with patient: 15-24 minutes Medications reviewed and adjusted accordingly: Yes Anticipated discharge: Home Within: within 48 hours - Inpatient Certification Based on my medical assessment, after consideration of the patient's comorbidities, presenting symptoms, or acuity I expect that the services needed warrant INPATIENT care.: Yes Medical Necessity: Need for Nebulizer Therapy and Monitoring of Response, Risk of Complication if Not Cared For in Hospital
[2017-09-29] MEDS: GUAIFENESIN 600 MG TABLET.SA PO SCH ×2 (14:50→21:53)
[2017-09-29] MEDS: PREDNISONE 20 MG TABLET PO SCH (14:50)
[2017-09-29] MEDS ORDERED: CEFTRIAXONE SODIUM 1,000 MG in NORMAL SALINE 50 ML IV SCH (15:00)
[2017-09-30] MEDS: IPRATROPIUM/ALBUTEROL 0.5-2.5 MG/3 ML AMPUL NEB SCH (08:30)
[2017-09-30] MEDS: MULTIVITAMIN TABLET PO SCH (10:29)
[2017-09-30] MEDS: ASCORBIC ACID 500 MG TABLET PO SCH (10:29)
[2017-09-30] MEDS: FAMOTIDINE 20 MG TABLET PO SCH (10:29)
[2017-09-30] MEDS: GEMFIBROZIL 600 MG TABLET PO SCH (10:29)
[2017-09-30] MEDS: DOCUSATE SODIUM 100 MG CAPSULE PO SCH (10:29)
[2017-09-30] MEDS: LISINOPRIL 5 MG TABLET PO SCH (10:29)
[2017-09-30] MEDS: FUROSEMIDE 20 MG TABLET PO SCH (10:30)
[2017-09-30] MEDS: METOPROLOL TARTRATE 50 MG TABLET PO SCH (10:30)
[2017-09-30] MEDS: ASPIRIN 81 MG TABLET, ENT COATED PO SCH (10:30)
[2017-09-30] MEDS: ENOXAPARIN SODIUM INJ 40 MG/0.4 ML DISP.SYRIN SUBCUT SCH (10:31)
[2017-09-30] MEDS: GUAIFENESIN 600 MG TABLET.SA PO SCH (10:42)
[2017-09-30] MEDS: PREDNISONE 20 MG TABLET PO SCH (10:42)
[2017-09-30 14:01] VITALS: BP 105/54
--- NOTE | 2017-09-30 15:18 | PDOC DISCHARGE SUMMARY ---
General - Admit/Disc Date/PCP Admission Date/Primary Care Provider: 09/28/17 15:40 KIA ALCARAZ MD Discharge Date: 09/30/17 - Discharge Diagnosis (1) COPD exacerbation Is this a current diagnosis for this admission?: Yes Summary: The patient's oxygen, steroids, and nebs were titrated and weaned. The patient is back to baseline and able to complete sentences. (2) Acute and chronic respiratory failure with hypoxia Is this a current diagnosis for this admission?: Yes Summary: As per #1 this is resolved. (3) Coronary artery disease Is this a current diagnosis for this admission?: Yes Summary: Noncritical disease. The patient has had a recent heart catheterization. (4) Tachybradycardia syndrome Is this a current diagnosis for this admission?: Yes - Additional Information Resuscitation Status: Full Code Discharge Diet: As Tolerated, Cardiac Discharge Activity: Activity As Tolerated Prescriptions: Prednisone [Deltasone 10 mg Tablet] 10 mg PO ASDIR PRN #21 tablet PRN Reason: Home Medications: Ascorbic Acid [Vitamin C] 1,000 mg PO DAILY 09/28/17 Aspirin [Aspirin EC] 81 mg PO DAILY 09/28/17 Furosemide [Lasix 20 mg Tablet] 20 mg PO DAILY 09/28/17 Gemfibrozil [Lopid 600 mg Tablet] 600 mg PO Q12 09/28/17 Lisinopril [Zestril] 5 mg PO DAILY 09/28/17 Metoprolol Tartrate [Lopressor 50 mg Tablet] 50 mg PO Q12 09/28/17 Multivitamin [Multiple Vitamins] 1 tab PO DAILY 09/28/17 Omeprazole 40 mg PO DAILY 09/28/17 Potassium Chloride [Klor-Con 10 Meq Capsule ER] 10 meq PO DAILY 09/28/17 Vit A/Vit C/Vit E/Zinc/Copper [Preservision Areds Tablet] 1 tab PO DAILY Vitamin E Mixed [Vitamin E] 400 unit PO DAILY 09/28/17 Prednisone [Deltasone 10 mg Tablet] 10 mg PO ASDIR PRN #21 tablet 09/30/17 History of Present Illness Patient complains of: Shortness of breath History of Present Illness: YULY SHAH is a 77 year old male with a past medical history of long- standing tobacco dependency, currently not smoking, that presented with complains of difficulty breathing and shortness of breath. According to the patient the symptoms had been going on for a few days but got worse approximately 24 hours prior to presentation. He has a history of sinusitis but currently denies any numbness or sinusitis, chest pain nausea vomiting. He has a history of underlying noncritical coronary artery disease but said he had a recent cardiology workup including cardiac cath and he was told that he did not need a stent at this time. He denies any fever, dizziness, nausea vomiting. Patient had symptoms of significant wheezing and a history consistent with chronic obstructive pulmonary disease. The patient was referred to the hospitalist for admission and management. Hospital Course Hospital Course: The patient was admitted to [facility]. The patient was placed on scheduled nebs as well as PRN nebs, steroids, and supplemental oxygen. The patient's oxygen, steroids, and nebs were titrated and weaned. The patient is back to baseline and able to complete sentences. The patient was ambulated around the unit yesterday and today 3 separate laps. Patient's oxygen saturation dropped to 87 % however the patient very easily recovered on his own. Patient did have episodes of his heart rate being 110 as low as the mid 40s. Patient stated that he just completed where an an event monitor on outpatient basis what he described as tachybradycardia syndrome. The patient was asymptomatic for this. Patient is exceedingly eager for discharge. Physical Exam Vital Signs: Temp Pulse Resp BP Pulse Ox 97.4 F 66 L 18 105/54 L 97 09/30/17 14:00 09/30/17 14:00 09/30/17 14:00 09/30/17 14:00 09/30/17 14:00 Intake & Output 09/28/17 09/29/17 09/30/17 23:59 23:59 23:59 Intake Total 1116 237 Balance 1116 237 Weight 85 kg 83.2 kg General appearance: PRESENT: no acute distress, well-developed, well-nourished Head exam: PRESENT: atraumatic, normocephalic Eye exam: PRESENT: conjunctiva pink, EOMI, PERRLA. ABSENT: scleral icterus Ear exam: PRESENT: normal external ear exam Mouth exam: PRESENT: moist, tongue midline Neck exam: ABSENT: carotid bruit, JVD, lymphadenopathy, thyromegaly Respiratory exam: PRESENT: decreased breath sounds, symmetrical, unlabored. ABSENT: rales, rhonchi, wheezes Cardiovascular exam: PRESENT: RRR. ABSENT: diastolic murmur, rubs, systolic murmur Pulses: PRESENT: normal dorsalis pedis pul Vascular exam: PRESENT: normal capillary refill GI/Abdominal exam: PRESENT: normal bowel sounds, soft. ABSENT: distended, guarding, mass, organolmegaly, rebound, tenderness Rectal exam: PRESENT: deferred Extremities exam: PRESENT: full ROM. ABSENT: calf tenderness, clubbing, pedal edema Neurological exam: PRESENT: alert, awake, oriented to person, oriented to place , oriented to time, oriented to situation, CN II-XII grossly intact. ABSENT: motor sensory deficit Psychiatric exam: PRESENT: appropriate affect, normal mood. ABSENT: homicidal ideation, suicidal ideation Skin exam: PRESENT: dry, intact, warm. ABSENT: cyanosis, rash Results Laboratory Results: Labs- Last Values WBC 11.0 10^3/uL (4.0-10.5) H 09/29/17 04:44 RBC 4.90 10^6/uL (4.35-5.55) 09/29/17 04:44 Hgb 15.0 g/dL (13.5-17.0) 09/29/17 04:44 Hct 43.5 % (37.9-51.0) 09/29/17 04:44 MCV 89 fl (80-97) 09/29/17 04:44 MCH 30.7 pg (27.0-33.4) 09/29/17 04:44 MCHC 34.5 g/dL (32.0-36.0) 09/29/17 04:44 RDW 13.6 % (11.5-14.0) 09/29/17 04:44 Plt Count 139 10^3/uL (150-450) L 09/29/17 04:44 Seg Neutrophils % 78.2 % (42-78) H 09/28/17 13:50 Lymphocytes % 5.8 % (13-45) L 09/28/17 13:50 Monocytes % 13.7 % (3-13) H 09/28/17 13:50 Eosinophils % 1.2 % (0-6) 09/28/17 13:50 Basophils % 1.1 % (0-2) 09/28/17 13:50 Absolute Neutrophils 10.4 10^3/uL (1.7-8.2) H 09/28/17 13:50 Absolute Lymphocytes 0.8 10^3/uL (0.5-4.7) 09/28/17 13:50 Absolute Monocytes 1.8 10^3/uL (0.1-1.4) H 09/28/17 13:50 Absolute Eosinophils 0.2 10^3/uL (0.0-0.6) 09/28/17 13:50 Absolute Basophils 0.1 10^3/uL (0.0-0.2) 09/28/17 13:50 Sodium 140.3 mmol/L (137-145) 09/29/17 04:44 Potassium 4.6 mmol/L (3.6-5.0) 09/29/17 04:44 Chloride 103 mmol/L (98-107) 09/29/17 04:44 Carbon Dioxide 23 mmol/L (22-30) 09/29/17 04:44 Anion Gap 14 (5-19) 09/29/17 04:44 BUN 21 mg/dL (7-20) H 09/29/17 04:44 Creatinine 0.78 mg/dL (0.52-1.25) 09/29/17 04:44 Est GFR ( Amer) > 60 (>60) 09/29/17 04:44 Est GFR (Non-Af Amer) > 60 (>60) 09/29/17 04:44 Glucose 166 mg/dL (75-110) H 09/29/17 04:44 Calcium 9.2 mg/dL (8.4-10.2) 09/29/17 04:44 Magnesium 1.9 mg/dL (1.6-2.3) 09/28/17 13:50 Total Bilirubin 0.7 mg/dL (0.2-1.3) 09/28/17 13:50 Direct Bilirubin 0.4 mg/dL (0.0-0.4) 09/28/17 13:50 Neonat Total Bilirubin Not Reportable 09/28/17 13:50 Neonat Direct Bilirubin Not Reportable 09/28/17 13:50 Neonat Indirect Bili Not Reportable 09/28/17 13:50 AST 26 U/L (17-59) 09/28/17 13:50 ALT 23 U/L (21-72) 09/28/17 13:50 Alkaline Phosphatase 125 U/L (38-126) 09/28/17 13:50 Total Protein 9.1 g/dL (6.3-8.2) H 09/28/17 13:50 Albumin 4.6 g/dL (3.5-5.0) 09/28/17 13:50 Impressions: Chest X-Ray 09/28/17 13:31 IMPRESSION: NO ACUTE RADIOGRAPHIC FINDING IN THE CHEST. Qualifiers - * PATIENT BEING DISCHARGED WITH ANY OF THE FOLLOWING DIAGNOSIS: No Plan Discharge Plan: The patient is to followup with their primary care provider within one week for hospital followup regarding COPD exacerbation. Follow-up with Umang Shah of cardiology as scheduled on Monday. Time Spent: Less than 30 Minutes
== END 2017-09-30 15:07 | disposition home or self-care (01) | DRG 190 ==
LOC: ER 12:56 → EH 15:40 → 3N 19:55
PROVIDERS: ADMIT Internal Medicine; ATTEND Internal Medicine
PROC: 3E0F73Z Introduction of Anti-inflammatory into Respiratory Tract, Via Natural or Artificial Opening (ICD-10-PCS; principal; 2017-09-28)
DX: J44.1 Chronic obstructive pulmonary disease with (acute) exacerbation (principal); J96.21 Acute and chronic respiratory failure with hypoxia; I42.9 Cardiomyopathy, unspecified; I25.10 Atherosclerotic heart disease of native coronary artery without angina pectoris; I25.2 Old myocardial infarction; M19.90 Unspecified osteoarthritis, unspecified site; I49.5 Sick sinus syndrome; Z87.891 Personal history of nicotine dependence; Z88.6 Allergy status to analgesic agent; Z79.82 Long term (current) use of aspirin
CPT/HCPCS: 36415; 71046; 80048; 80053; 83735; 85025; 85027; 87040; 87077; 87186; 93005; 93010; 94640; 96374; 99285; J0696; J1650; J2920; J2930; J3490; J7512; J7620

== ENCOUNTER 2017-11-04 02:50 | Inpatient (IN) | payer MEDICARE, OTHER ==
[2017-11-04 03:12] LABS: VENOUS BLOOD BASE EXCESS 0.6 mmol/L; VENOUS BLOOD HCO3 29.8 mmol/L (20-32); VENOUS BLOOD PH 7.26 (7.30-7.42)
--- NOTE | 2017-11-04 03:12 | ER Document Report ---
ED General - General Mode of Arrival: Medic Information source: Patient, Emergency Med Personnel TRAVEL OUTSIDE OF THE [place] IN LAST 30 DAYS: No <RAKAN HUMPHRIES - Last Filed: 11/04/17 04:38> <GILBERT OWENS - Last Filed: 11/04/17 05:08> - General Stated Complaint: SHORTNESS OF BREATH Time Seen by Provider: 11/04/17 02:58 Notes: Patient is a 77 year old male with HTN, high cholesterol and a history of CT and recurrent pneumonia presents to the emergency department complaining of shortness of breath and chest pain onset around 0000 this morning. Patient states he began to have left sided chest pain and difficulty breathing simultaneously tonight. Patient mentions having a non productive cough for approximately 3 months. EMS placed patient on CPAP en route and administered 2 albuterol and 1 atrovent. Patient's PCP is Dr. Alberto. (RAKAN HUMPHRIES) - Related Data Allergies/Adverse Reactions: codeine [Codeine] Allergy (Unknown, Verified 09/28/17 12:57) Sweats Past Medical History - General Information source: Patient, Emergency Med Personnel - Social History Smoking Status: Former Smoker Cigarette use (# per day): No Chew tobacco use (# tins/day): No Smoking Education Provided: No Family History: Reviewed & Not Pertinent - Past Medical History Cardiac Medical History: Reports: Hx Coronary Artery Disease, Hx Heart Attack - 1988 Pulmonary Medical History: Reports: Hx Pneumonia Musculoskeletal Medical History: Reports Hx Arthritis Past Surgical History: Reports: Hx Bowel Surgery - part of colon removed - Immunizations Hx Diphtheria, Pertussis, Tetanus Vaccination: Yes <RAKAN HUMPHRIES - Last Filed: 11/04/17 04:38> Review of Systems - Review of Systems Constitutional: No symptoms reported EENT: No symptoms reported Cardiovascular: See HPI, Chest pain Respiratory: See HPI, Short of breath Gastrointestinal: No symptoms reported Genitourinary: No symptoms reported Male Genitourinary: No symptoms reported Musculoskeletal: No symptoms reported Skin: No symptoms reported Hematologic/Lymphatic: No symptoms reported Neurological/Psychological: No symptoms reported -: Yes All other systems reviewed and negative <RAKAN HUMPHRIES - Last Filed: 11/04/17 04:38> Physical Exam - General General appearance: Alert In distress: Severe - HEENT Head: Normocephalic, Atraumatic Eyes: Normal Conjunctiva: Normal Extraocular movements intact: Yes Pupils: PERRL Neck: Normal - Respiratory Respiratory status: Respiratory distress, Tachypnea Chest status: Nontender Breath sounds: Rales - bilaterally Chest palpation: Normal - Cardiovascular Rhythm: Tachycardia Heart sounds: Normal auscultation Murmur: No Friction rub: No Gallop: None auscultated - Abdominal Inspection: Normal Distension: No distension Bowel sounds: Normal Tenderness: Nontender Organomegaly: No organomegaly - Back Back: Normal - Extremities General upper extremity: Normal ROM General lower extremity: Normal ROM - Neurological Neuro grossly intact: Yes Cognition: Normal Orientation: AAOx4 [place] Coma Scale Eye Opening: Spontaneous [place] Coma Scale Verbal: Oriented [place] Coma Scale Motor: Obeys Commands Ryder Coma Scale Total: 15 Speech: Normal - Psychological Associated symptoms: Normal affect, Normal mood - Skin Skin Temperature: Warm Skin Moisture: Dry Skin Color: Normal <RAKAN HUMPHRIES - Last Filed: 11/04/17 04:38> <GILBERT OWENS - Last Filed: 11/04/17 05:08> - Vital signs Vitals: Resp Pulse Ox 35 H 99 11/04/17 02:55 11/04/17 02:55 - Respiratory Notes: On CPAP. Tachypneic, hypoxic. (RAKAN HUMPHRIES) Course - Laboratory Result Diagrams: 11/04/17 03:09 11/04/17 03:09 <RAKAN HUMPHRIES - Last Filed: 11/04/17 04:38> - Laboratory Result Diagrams: 11/04/17 03:09 11/04/17 03:09 <GILBERT OWENS - Last Filed: 11/04/17 05:08> - Re-evaluation Re-evalutation: 11/04/17 04:07 Patient is a 77-year-old male who comes in with difficulty breathing, tachycardia, productive cough. History of COPD. Symptoms, x-ray consistent with pneumonia. Patient is improved with BiPAP although acidotic on initial blood gas. Chest x-ray is consistent with pneumonia. Patient was recently in the hospital about a month ago. Cultures have been sent and hospital-acquired antibiotics ordered for treatment of pneumonia. Patient is stable at the time of admission to the [facility]. He and understand and agree with admission. Discussed with Dr. Yuan. Stable at the time of admission. (GILBERT OWENS) - Vital Signs Vital signs: Temp Pulse Resp BP Pulse Ox 98.7 F 29 H 169/101 H 94 11/04/17 04:07 11/04/17 04:15 11/04/17 03:00 11/04/17 04:15 - Laboratory Laboratory results interpreted by me: 11/04/17 11/04/17 11/04/17 03:00 03:00 03:09 WBC 13.4 H RDW 14.9 H Plt Count 145 L Abs Neuts (Manual) 10.3 H VBG pH 7.26 L VBG pCO2 68.2 H* BUN Glucose Lactic Acid 2.4 H Direct Bilirubin ALT Creatine Kinase NT-Pro-B Natriuret Pep Urine Protein Urine Ascorbic Acid 11/04/17 11/04/17 11/04/17 03:09 03:09 03:09 WBC RDW Plt Count Abs Neuts (Manual) VBG pH VBG pCO2 BUN 30 H Glucose 123 H Lactic Acid Direct Bilirubin 0.8 H ALT 19 L Creatine Kinase 26 L NT-Pro-B Natriuret Pep 831 H Urine Protein Urine Ascorbic Acid 11/04/17 03:10 WBC RDW Plt Count Abs Neuts (Manual) VBG pH VBG pCO2 BUN Glucose Lactic Acid Direct Bilirubin ALT Creatine Kinase NT-Pro-B Natriuret Pep Urine Protein 30 H Urine Ascorbic Acid 40 H Critical Care Note - Critical Care Note Total time excluding time spent on procedures (mins): 45 - Evaluation and management of respiratory distress, multiple re-evaluations, treatment of sepsis , initiation of BiPAP, coordination of admission, counseling of patient and family <GILBERT OWENS - Last Filed: 11/04/17 05:08> Discharge <RAKAN HUMPHRIES - Last Filed: 11/04/17 04:38> - Discharge Admitting Provider: Madeline Yuan Unit Admitted: [facility] <GILBERT OWENS - Last Filed: 11/04/17 05:08> - Discharge Clinical Impression: COPD exacerbation Acute respiratory failure Qualifiers: Respiratory failure complication: hypoxia and hypercapnia Qualified Code(s): J96.01 - Acute respiratory failure with hypoxia; J96.02 - Acute respiratory failure with hypercapnia; J96.02 - Acute respiratory failure with hypercapnia; J96.02 - Acute respiratory failure with hypercapnia Pneumonia Qualifiers: Pneumonia type: due to unspecified organism Laterality: unspecified laterality Lung location: lower lobe of lung Qualified Code(s): J18.1 - Lobar pneumonia, unspecified organism Sepsis Qualifiers: Sepsis type: sepsis due to unspecified organism Qualified Code(s): A41.9 - Sepsis, unspecified organism Condition: Stable Disposition: ADMITTED INPATIENT Referrals: KIA ALCARAZ MD [Primary Care Provider] - Follow up as needed Scribe Attestation: 11/04/17 05:07 I personally performed the services described in the documentation, reviewed and edited the documentation which was dictated to the scribe in my presence, and it accurately records my words and actions. (GILBERT OWENS) Scribe Documentation - Scribe Written by Scribe:: Norman Paris, 11/04/2017 03:15 acting as scribe for :: Rachel <RAKAN HUMPHRIES - Last Filed: 11/04/17 04:38>
[2017-11-04] MEDS ORDERED: FENTANYL CITRATE INJ/PF 100 MCG/2 ML AMPUL IV ONE (03:13)
[2017-11-04 03:14] LABS: VENOUS BLOOD PCO2 68.2 mmHg (35-63)
[2017-11-04 03:24] LABS: INTERNATIONAL RATION (INR) 0.88; PROTHROMBIN TIME 12.4 SEC (11.4-15.4)
[2017-11-04 03:25] LABS: HEMATOCRIT 46.5 % (37.9-51.0); HEMOGLOBIN 15.4 g/dL (13.5-17.0); MEAN CORPUSCULAR HEMOGLOBIN 30.7 pg (27.0-33.4); MEAN CORPUSCULAR HGB CONC 33.1 g/dL (32.0-36.0); MEAN CORPUSCULAR VOLUME 93 fl (80-97); PLATELET COUNT 145 10^3/uL (150-450); RED BLOOD COUNT 5.02 10^6/uL (4.35-5.55); RED CELL DISTRIBUTION WIDTH 14.9 % (11.5-14.0); WHITE BLOOD COUNT 13.4 10^3/uL (4.0-10.5)
[2017-11-04 03:32] LABS: APPEARANCE,URINE CLEAR; BILIRUBIN,URINE NEGATIVE (NEGATIVE); COLOR,URINE YELLOW; GLUCOSE, URINE NEGATIVE (NEGATIVE); KETONES,URINE NEGATIVE (NEGATIVE); LEUKOCYTE ESTERASE,URINE NEGATIVE (NEGATIVE); NITRITE,URINE NEGATIVE (NEGATIVE); PROTEIN,URINE 30 mg/dL (NEGATIVE); URINE SPECIFIC GRAVITY 1.021; UROBILINOGEN,URINE NEGATIVE mg/dL (<2.0)
[2017-11-04 03:42] LABS: ALANINE AMINOTRANSFERASE 19 U/L (21-72); ALBUMIN 4.2 g/dL (3.5-5.0); ALKALINE PHOSPHATASE 47 U/L (38-126); ANION GAP 8 (5-19); ASPARTATE AMINO TRANSFERASE 38 U/L (17-59); BILIRUBIN,DIRECT 0.8 mg/dL (0.0-0.4); BILIRUBIN,TOTAL 1.1 mg/dL (0.2-1.3); BLOOD UREA NITROGEN 30 mg/dL (7-20); CALCIUM 8.4 mg/dL (8.4-10.2); CARBON DIOXIDE 29 mmol/L (22-30); CHLORIDE 102 mmol/L (98-107); GLUCOSE 123 mg/dL (75-110); POTASSIUM 4.4 mmol/L (3.6-5.0); SODIUM 139.4 mmol/L (137-145); TOTAL PROTEIN 7.7 g/dL (6.3-8.2)
[2017-11-04 03:46] LABS: ABSOLUTE MONOCYTES # (MANUAL) 0.7 10^3/uL (0.1-1.4); ABSOLUTE NEUTROPHILS# (MANUAL) 10.3 10^3/uL (1.7-8.2); BASOPHILS % (MANUAL) 0 % (0-2); EOSINOPHILS % (MANUAL) 3 % (0-6); LYMPHOCYTES % (MANUAL) 15 % (13-45); MONOCYTES % (MANUAL) 5 % (3-13); SEGMENTED NEUTROPHILS % (MAN) 77 % (42-78); TOTAL CELLS COUNTED 100
[2017-11-04 03:47] LABS: ANISOCYTOSIS SLIGHT; PLATELET COMMENT ADEQUATE; PLATELET LARGE PRESENT; POIKILOCYTOSIS SLIGHT; TEAR DROP CELLS 1+; TOXIC GRANULATION SLIGHT
[2017-11-04 03:51] LABS: TROPONIN I 0.013 ng/mL
[2017-11-04 03:57] LABS: A TYPE INFLUENZA AG NEGATIVE (NEGATIVE); B INFLUENZA AG NEGATIVE (NEGATIVE)
[2017-11-04] MEDS ORDERED: NORMAL SALINE 500 ML IV ONE (04:00)
[2017-11-04] MEDS ORDERED: CEFEPIME 1 GM/D5W RTU 1 GM/50 ML RTUPB IV ONE (04:19)
[2017-11-04] MEDS ORDERED: LEVOFLOXACIN 750 MG/D5W RTU 750 MG/150 ML RTUPB IV ONE (04:20)
[2017-11-04] MEDS ORDERED: METHYLPREDNISOLONE INJ 125 MG/2 ML SDV IV ONE (04:20)
--- NOTE | 2017-11-04 04:23 | RADIOLOGY REPORT (SQ) ---
EXAM DESCRIPTION: XR CHEST 1 VIEW COMPLETED DATE/TME: 11/04/2017 02:59 CLINICAL HISTORY: 77 years Male, SOB COMPARISON: September 28, 2018 NUMBER OF VIEWS/TECHNIQUE: 1/AP FINDINGS: Small opacity of the left lateral lung base, mild interstitial markings, normal cardiac silhouette, atherosclerosis. No pneumothorax. Stable bony thorax. IMPRESSION: Small left basilar atelectasis/pneumonia.
[2017-11-04] MEDS ORDERED: IPRATROPIUM/ALBUTEROL 0.5-2.5 MG/3 ML AMPUL NEB PRN (04:27)
[2017-11-04] MEDS ORDERED: ACETAMINOPHEN 325 MG TABLET PO PRN ×2 (04:27→14:31)
[2017-11-04] MEDS ORDERED: GUAIFENESIN SYRP 200 MG/10 ML UDC PO PRN (04:27)
[2017-11-04] MEDS ORDERED: HYDRALAZINE HCL INJ/PF 20 MG/1 ML SDV IV PRN (04:27)
[2017-11-04] MEDS ORDERED: VANCOMYCIN HCL 0 MG in DEXTROSE 5%-WATER 250 ML IV NR (04:30)
[2017-11-04] MEDS ORDERED: FLUTICASONE NASAL SPRAY 50 MCG/SPRY 120 SPRAY/16 GM NASL ONE (05:00)
[2017-11-04] MEDS ORDERED: NORMAL SALINE 1000 ML 1,000 ML IV PRN (05:00)
[2017-11-04] MEDS ORDERED: VANCOMYCIN HCL 2,000 MG in DEXTROSE 5%-WATER 500 ML IV ONE (05:15)
[2017-11-04] MEDS: CHLORPHENIRAMINE MALEATE 4 MG TABLET PO SCH ×4 (05:33→23:40)
[2017-11-04] MEDS: HEPARIN SOD (PORCINE) 5,000 UNIT/ML 1 ML SYRINGE SUBCUT SCH ×3 (05:33→21:50)
[2017-11-04] MEDS ORDERED: FLUTICASONE NASAL SPRAY 50 MCG/SPRY 120 SPRAY/16 GM ONE (05:39)
[2017-11-04] MEDS ORDERED: METOPROLOL TARTRATE PF/INJ 5 MG/5 ML SDV IV ONE ×2 (05:41→05:43)
--- NOTE | 2017-11-04 06:28 | PDOC H&P ---
History of Present Illness Admission Date/PCP: 11/04/17 04:38 KIA ALCARAZ MD Patient complains of: Shortness of breath and cough History of Present Illness: YULY RODRIGUEZ is a 77 year old male with past medical history of coronary artery disease, negative cardiac catheterization 1 month ago, COPD, chronic bronchitis and recurrent pneumonia. He presents with 5 days of progressive shortness of breath with intermittent productive cough subjective fever and chills. In the emergency room he is found to have sepsis, tachypnea, hypoxia, tachycardia, leukocytosis and a left-sided infiltrate. He started on BiPAP, empiric antibiotics and referred to the hospitalist for admission. Patient denies recent antibiotics. Admits recent initiation of metoprolol. BNP is 800. Past Medical History Cardiac Medical History: Reports: Coronary Artery Disease, Myocardial Infarction - 1988 Denies: Hypertension Pulmonary Medical History: Reports: Bronchitis, Chronic Obstructive Pulmonary Disease (COPD), Pneumonia Denies: Asthma Neurological Medical History: Denies: Seizures GI Medical History: Denies: Hepatitis, Hiatal Hernia Musculoskeltal Medical History: Reports: Arthritis Psychiatric Medical History: Denies: Depression Hematology: Denies: Anemia, Sickle Cell Disease Past Surgical History Past Surgical History: Denies: Pacemaker Social History Information Source: Patient Lives with: Spouse/Significant other Smoking Status: Former Smoker Number of Years Smokin Frequency of Alcohol Use: None Hx Recreational Drug Use: No Drugs: None Hx Prescription Drug Abuse: No - Advance Directive Resuscitation Status: Full Code Family History Family History: Hypertension Parental Family History Reviewed: Yes Children Family History Reviewed: Yes Sibling(s) Family History Reviewed.: Yes Medication/Allergy Home Medications: Ascorbic Acid [Vitamin C] 1,000 mg PO DAILY 09/28/17 Aspirin [Aspirin EC] 81 mg PO DAILY 09/28/17 Furosemide [Lasix 20 mg Tablet] 20 mg PO DAILY 09/28/17 Gemfibrozil [Lopid 600 mg Tablet] 600 mg PO Q12 09/28/17 Lisinopril [Zestril] 5 mg PO DAILY 09/28/17 Metoprolol Tartrate [Lopressor 50 mg Tablet] 50 mg PO Q12 09/28/17 Multivitamin [Multiple Vitamins] 1 tab PO DAILY 09/28/17 Omeprazole 40 mg PO DAILY 09/28/17 Potassium Chloride [Klor-Con 10 Meq Capsule ER] 10 meq PO DAILY 09/28/17 Vit A/Vit C/Vit E/Zinc/Copper [Preservision Areds Tablet] 1 tab PO DAILY Vitamin E Mixed [Vitamin E] 400 unit PO DAILY 09/28/17 Prednisone [Deltasone 10 mg Tablet] 10 mg PO ASDIR PRN #21 tablet 09/30/17 Allergies/Adverse Reactions: codeine [Codeine] Allergy (Unknown, Verified 09/28/17 12:57) Sweats Review of Systems Constitutional: PRESENT: as per HPI, chills, fatigue, fever(s), weakness. ABSENT: headache(s), night sweats Eyes: ABSENT: visual disturbances Ears: ABSENT: hearing changes Cardiovascular: PRESENT: as per HPI, dyspnea on exertion, palpitations. ABSENT : edema, orthropnea Respiratory: PRESENT: as per HPI, cough, dyspnea, sputum. ABSENT: hemoptysis Gastrointestinal: ABSENT: abdominal pain, constipation, diarrhea, hematemesis, hematochezia, nausea, vomiting Genitourinary: ABSENT: dysuria, hematuria Musculoskeletal: ABSENT: joint swelling Integumentary: ABSENT: rash, wounds Neurological: ABSENT: abnormal gait, abnormal speech, confusion, dizziness, focal weakness, syncope Psychiatric: ABSENT: anxiety, depression, homidical ideation, suicidal ideation Endocrine: ABSENT: cold intolerance, heat intolerance, polydipsia, polyuria Hematologic/Lymphatic: ABSENT: easy bleeding, easy bruising Physical Exam Vital Signs: Temp Pulse Resp BP Pulse Ox 98.7 F 28 H 106/75 93 11/04/17 04:07 11/04/17 06:00 11/04/17 06:00 11/04/17 06:00 Intake & Output 11/02/17 11/03/17 11/04/17 11:59 11:59 11:59 Intake Total 50 Balance 50 General appearance: PRESENT: cooperative, severe distress. ABSENT: disheveled, hard of hearing Head exam: PRESENT: atraumatic, normocephalic Ear exam: PRESENT: normal external ear exam Mouth exam: PRESENT: moist, tongue midline Neck exam: ABSENT: carotid bruit, JVD, lymphadenopathy, thyromegaly Respiratory exam: PRESENT: accessory muscle use, crackles, prolonged expiratory phas, rales, rhonchi, tachypnea. ABSENT: unlabored, wheezes Cardiovascular exam: PRESENT: RRR, tachycardia. ABSENT: diastolic murmur, gallop Pulses: PRESENT: normal dorsalis pedis pul Vascular exam: PRESENT: normal capillary refill GI/Abdominal exam: PRESENT: normal bowel sounds, soft. ABSENT: distended, guarding, mass, organolmegaly, rebound, tenderness Rectal exam: PRESENT: deferred Extremities exam: PRESENT: full ROM. ABSENT: calf tenderness, clubbing, pedal edema Neurological exam: PRESENT: alert, awake, oriented to person, oriented to place , oriented to time, oriented to situation, CN II-XII grossly intact. ABSENT: motor sensory deficit Psychiatric exam: PRESENT: appropriate affect, normal mood. ABSENT: homicidal ideation, suicidal ideation Skin exam: PRESENT: dry, intact, warm. ABSENT: cyanosis, rash Results Impressions: Chest X-Ray 11/04/17 02:59 IMPRESSION: Small left basilar atelectasis/pneumonia. Assessment & Plan - Diagnosis (1) Pneumonia Qualifiers: Pneumonia type: due to unspecified organism Laterality: unspecified laterality Lung location: lower lobe of lung Qualified Code(s): J18.1 - Lobar pneumonia, unspecified organism Is this a current diagnosis for this admission?: Yes Plan: Pneumonia care set with treatment of hospital-acquired pneumonia. (2) Acute respiratory failure Qualifiers: Respiratory failure complication: hypoxia and hypercapnia Qualified Code(s) : J96.01 - Acute respiratory failure with hypoxia; J96.02 - Acute respiratory failure with hypercapnia; J96.02 - Acute respiratory failure with hypercapnia; J96.02 - Acute respiratory failure with hypercapnia Is this a current diagnosis for this admission?: Yes Plan: Secondary to #1 with underlying COPD. (3) COPD exacerbation Is this a current diagnosis for this admission?: Yes Plan: Flutter valve, supplemental oxygen, BiPAP as needed (4) Sepsis Qualifiers: Sepsis type: sepsis due to unspecified organism Qualified Code(s): A41.9 - Sepsis, unspecified organism Is this a current diagnosis for this admission?: Yes Plan: Secondary to #1, follow-up CBC, blood culture and lactic acid. - Time Time Spent: 50 to 70 Minutes - Inpatient Certification Medical Necessity: Need Close Monitoring Due to Risk of Patient Decompensation
[2017-11-04] MEDS: IPRATROPIUM/ALBUTEROL 0.5-2.5 MG/3 ML AMPUL NEB SCH ×3 (07:50→20:12)
[2017-11-04 09:51] LABS: CREATINE KINASE MB 0.92 ng/mL (<4.55); TROPONIN I 0.04 ng/mL
[2017-11-04] MEDS: METHYLPREDNISOLONE INJ 40 MG/1 ML SDV IV SCH (11:26)
[2017-11-04] MEDS: METOPROLOL TARTRATE 50 MG TABLET PO SCH ×2 (11:26→21:49)
[2017-11-04] MEDS: VANCOMYCIN HCL 1,000 MG in DEXTROSE 5%-WATER 250 ML IV SCH ×2 (11:27→21:50)
--- NOTE | 2017-11-04 15:31 | RADIOLOGY REPORT (SQ) ---
EXAM DESCRIPTION: SHOULDER LEFT 2 OR MORE VIEWS COMPLETED DATE/TIME: 11/04/2017 3:14 pm REASON FOR STUDY: left shoulder pain COMPARISON: 04/04/2017 NUMBER OF VIEWS: Three views. TECHNIQUE: Internal rotation, external rotation, and Y view images acquired of the left shoulder. LIMITATIONS: Oblique Y view. FINDINGS: MINERALIZATION: Normal. BONES: No acute fracture or dislocation. No worrisome bone lesions. JOINTS: No dislocation. VISUALIZED LUNGS AND RIBS: No pneumothorax. No rib fracture. SOFT TISSUES: No radiopaque foreign body. OTHER: No other significant finding. IMPRESSION: NO RADIOGRAPHIC EVIDENCE OF ACUTE INJURY. TECHNICAL DOCUMENTATION: JOB ID: [id number] [place]-72 2010 [employer]- All Rights Reserved Reading location - IP/workstation name: [email or web address]
[2017-11-04] MEDS: LIDOCAINE 5% (700 MG) TRANSDERMAL ADH..PATCH TP SCH (15:57)
[2017-11-04] MEDS ORDERED: NAPROXEN 375 MG TABLET PO ONE (16:00)
[2017-11-04 16:21] LABS: CREATINE KINASE MB 1.09 ng/mL (<4.55); TROPONIN I 0.022 ng/mL
[2017-11-04] MEDS ORDERED: CEFEPIME 2 GM/D5W RTU 4 GM/100 ML RTUPB IV ONE (18:56)
[2017-11-04] MEDS: CEFEPIME 2 GM/D5W RTU 2 GM/50 ML RTUPB IV SCH (19:08)
--- NOTE | 2017-11-04 20:26 | EKG REPORT ---
SEVERITY:- ABNORMAL ECG - SINUS TACHYCARDIA RBBB AND LAFB : Confirmed by: Minan Desouza MD 04-Nov-2017 20:25:30
[2017-11-04] MEDS: FLUTICASONE NASAL SPRAY 50 MCG/SPRY 120 SPRAY/16 GM NASL SCH (21:48)
[2017-11-05] MEDS: IPRATROPIUM/ALBUTEROL 0.5-2.5 MG/3 ML AMPUL NEB SCH ×4 (02:09→20:00)
[2017-11-05 04:53] LABS: HEMATOCRIT 38.8 % (37.9-51.0); MEAN CORPUSCULAR HEMOGLOBIN 30.5 pg (27.0-33.4); MEAN CORPUSCULAR HGB CONC 33.5 g/dL (32.0-36.0); MEAN CORPUSCULAR VOLUME 91 fl (80-97); RED BLOOD COUNT 4.26 10^6/uL (4.35-5.55); RED CELL DISTRIBUTION WIDTH 14.8 % (11.5-14.0); WHITE BLOOD COUNT 8.5 10^3/uL (4.0-10.5)
[2017-11-05 05:09] LABS: ANION GAP 8 (5-19); BLOOD UREA NITROGEN 26 mg/dL (7-20); CARBON DIOXIDE 22 mmol/L (22-30); CHLORIDE 108 mmol/L (98-107); GLUCOSE 100 mg/dL (75-110); POTASSIUM 3.7 mmol/L (3.6-5.0); SODIUM 137.7 mmol/L (137-145)
[2017-11-05 05:25] LABS: PLATELET COUNT 77 10^3/uL (150-450)
[2017-11-05 05:29] LABS: ABSOLUTE LYMPHOCYTES# (MANUAL) 0.5 10^3/uL (0.5-4.7); ABSOLUTE MONOCYTES # (MANUAL) 0.3 10^3/uL (0.1-1.4); ABSOLUTE NEUTROPHILS# (MANUAL) 7.5 10^3/uL (1.7-8.2); BASOPHILS % (MANUAL) 0 % (0-2); EOSINOPHILS % (MANUAL) 2 % (0-6); LYMPHOCYTES % (MANUAL) 5 % (13-45); MONOCYTES % (MANUAL) 4 % (3-13); SEGMENTED NEUTROPHILS % (MAN) 88 % (42-78); TOTAL CELLS COUNTED 100
[2017-11-05 05:36] LABS: ANISOCYTOSIS SLIGHT; BURR CELLS 2+; PLATELET COMMENT DECREASED; POIKILOCYTOSIS 2+; TEAR DROP CELLS 2+; TOXIC GRANULATION 1+; TOXIC VACUOLATION PRESENT
[2017-11-05] MEDS: CEFEPIME 2 GM/D5W RTU 2 GM/50 ML RTUPB IV SCH (06:51)
[2017-11-05] MEDS: HEPARIN SOD (PORCINE) 5,000 UNIT/ML 1 ML SYRINGE SUBCUT SCH ×3 (06:52→21:10)
[2017-11-05] MEDS: CHLORPHENIRAMINE MALEATE 4 MG TABLET PO SCH ×4 (06:52→23:22)
[2017-11-05] MEDS: METHYLPREDNISOLONE INJ 40 MG/1 ML SDV IV SCH (10:22)
[2017-11-05] MEDS: METOPROLOL TARTRATE 50 MG TABLET PO SCH ×2 (10:23→21:11)
[2017-11-05] MEDS: LIDOCAINE 5% (700 MG) TRANSDERMAL ADH..PATCH TP SCH (10:24)
[2017-11-05] MEDS: VANCOMYCIN HCL 1,000 MG in DEXTROSE 5%-WATER 250 ML IV SCH (10:25)
[2017-11-05] MEDS: FLUTICASONE NASAL SPRAY 50 MCG/SPRY 120 SPRAY/16 GM NASL SCH ×2 (10:31→21:12)
--- NOTE | 2017-11-05 15:40 | PDOC PROGRESS REPORT ---
Subjective Progress Note for:: 11/05/17 Subjective:: Mr. Shah is a 77-year-old male with a past medical history of stable CAD, with recent cardiac catheterization 1 month ago, possible COPD and prior episodes of pneumonia who initially presented with progressive shortness of breath, productive cough and fever. Patient was admitted for sepsis secondary to pneumonia. He was initially on BiPAP. No acute event overnight. Patient says he is breathing is much better today. He appears comfortable on nasal cannula and is saturating well. No fever chills. Reason For Visit: SEPIS PNEUMONIA Physical Exam Vital Signs: Temp Pulse Resp BP Pulse Ox 97.4 F 88 18 116/55 L 93 11/05/17 11:37 11/05/17 14:25 11/05/17 14:25 11/05/17 11:37 11/05/17 14:25 Intake & Output 11/04/17 11/05/17 11/06/17 06:59 06:59 06:59 Intake Total 200 1192 605 Output Total 1050 200 Balance 200 142 405 Weight 201 lb 15.095 oz General appearance: PRESENT: no acute distress, well-developed, well-nourished Head exam: PRESENT: atraumatic, normocephalic Eye exam: PRESENT: conjunctiva pink, EOMI, PERRLA. ABSENT: scleral icterus Ear exam: PRESENT: normal external ear exam Mouth exam: PRESENT: moist, tongue midline Neck exam: ABSENT: carotid bruit, JVD, lymphadenopathy, thyromegaly Respiratory exam: PRESENT: clear to auscultation thong, rhonchi - occsional rhonchi on the bases. ABSENT: rales, wheezes Cardiovascular exam: PRESENT: RRR. ABSENT: diastolic murmur, rubs, systolic murmur Pulses: PRESENT: normal dorsalis pedis pul GI/Abdominal exam: PRESENT: normal bowel sounds, soft. ABSENT: distended, guarding, mass, organolmegaly, rebound, tenderness Rectal exam: PRESENT: deferred Neurological exam: PRESENT: alert, awake, oriented to person, oriented to place , oriented to time, oriented to situation, CN II-XII grossly intact. ABSENT: motor sensory deficit Results Laboratory Results: 11/05/17 04:01 11/05/17 04:01 11/05/17 11/05/17 04:01 04:01 WBC 8.5 RBC 4.26 L Hgb 13.0 L D Hct 38.8 MCV 91 MCH 30.5 MCHC 33.5 RDW 14.8 H Plt Count 77 L Seg Neutrophils % Not Reportable Lymphocytes % Not Reportable Monocytes % Not Reportable Eosinophils % Not Reportable Basophils % Not Reportable Absolute Neutrophils Not Reportable Absolute Lymphocytes Not Reportable Absolute Monocytes Not Reportable Absolute Eosinophils Not Reportable Absolute Basophils Not Reportable Sodium 137.7 Potassium 3.7 Chloride 108 H Carbon Dioxide 22 Anion Gap 8 BUN 26 H Creatinine 0.69 Est GFR ( Amer) > 60 Est GFR (Non-Af Amer) > 60 Glucose 100 Calcium 8.0 L 11/04/17 11/04/17 11/04/17 09:13 09:13 15:48 Creatine Kinase < 20 L < 20 L CK-MB (CK-2) 0.92 Troponin I 0.040 11/04/17 15:48 Creatine Kinase CK-MB (CK-2) 1.09 Troponin I 0.022 Impressions: Shoulder X-Ray 11/04/17 00:00 IMPRESSION: NO RADIOGRAPHIC EVIDENCE OF ACUTE INJURY. Chest X-Ray 11/04/17 02:59 IMPRESSION: Small left basilar atelectasis/pneumonia. Assessment & Plan - Diagnosis (1) Sepsis Qualifiers: Sepsis type: sepsis due to unspecified organism Qualified Code(s): A41.9 - Sepsis, unspecified organism Is this a current diagnosis for this admission?: Yes Plan: Sepsis secondary to left-sided pneumonia. Lactic acidosis is resolved. Leukocytosis has also resolved. Patient was initially started on vancomycin and cefepime. Will switch to levofloxacin. Cultures have been negative so far. (2) HCAP (healthcare-associated pneumonia) Is this a current diagnosis for this admission?: Yes Plan: Patient was started on cefepime and vancomycin. He was initially placed on BiPAP and overnight was alternated on nasal cannula and BiPAP. He has improved clinically. We will switch antibiotics to levofloxacin today. We will see how patient does off oxygen support. He does not use home O2. (3) COPD exacerbation Is this a current diagnosis for this admission?: Yes Plan: On chart review, patient was treated for prior possible COPD exacerbation. Upon questioning, patient denies formal diagnosis of COPD. 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 He does not appear to be on home inhalers and optimal medications for COPD. Switch IV steroids to PO. (4) Coronary artery disease Is this a current diagnosis for this admission?: Yes Plan: Stable. Patient says that he had a recent cardiac cath last month and was told that there are no recurrent remarkable findings requiring intervention. - Time Time Spent with patient: 15-24 minutes
[2017-11-05] MEDS: PREDNISONE 20 MG TABLET PO SCH (17:34)
[2017-11-06] MEDS: IPRATROPIUM/ALBUTEROL 0.5-2.5 MG/3 ML AMPUL NEB SCH ×4 (02:34→19:55)
[2017-11-06 05:38] LABS: HEMATOCRIT 39.6 % (37.9-51.0); HEMOGLOBIN 13.3 g/dL (13.5-17.0); MEAN CORPUSCULAR HEMOGLOBIN 30.6 pg (27.0-33.4); MEAN CORPUSCULAR HGB CONC 33.6 g/dL (32.0-36.0); MEAN CORPUSCULAR VOLUME 91 fl (80-97); RED BLOOD COUNT 4.35 10^6/uL (4.35-5.55); RED CELL DISTRIBUTION WIDTH 14.6 % (11.5-14.0); WHITE BLOOD COUNT 8.2 10^3/uL (4.0-10.5)
[2017-11-06 05:43] LABS: PLATELET COUNT 87 10^3/uL (150-450)
[2017-11-06 05:53] LABS: BLOOD UREA NITROGEN 24 mg/dL (7-20); CALCIUM 8.1 mg/dL (8.4-10.2); CHLORIDE 104 mmol/L (98-107); GLUCOSE 136 mg/dL (75-110); POTASSIUM 3.9 mmol/L (3.6-5.0)
[2017-11-06 05:55] LABS: ABSOLUTE LYMPHOCYTES# (MANUAL) 0.2 10^3/uL (0.5-4.7); ABSOLUTE MONOCYTES # (MANUAL) 0.5 10^3/uL (0.1-1.4); ABSOLUTE NEUTROPHILS# (MANUAL) 7.5 10^3/uL (1.7-8.2); BASOPHILS % (MANUAL) 0 % (0-2); EOSINOPHILS % (MANUAL) 0 % (0-6); LYMPHOCYTES % (MANUAL) 3 % (13-45); MONOCYTES % (MANUAL) 6 % (3-13); SEGMENTED NEUTROPHILS % (MAN) 91 % (42-78); TOTAL CELLS COUNTED 100
[2017-11-06 05:59] LABS: POLYCHROMASIA 1+
[2017-11-06 06:00] LABS: ANISOCYTOSIS 1+; PLATELET COMMENT ADEQUATE
[2017-11-06 06:19] LABS: CARBON DIOXIDE 27 mmol/L (22-30); SODIUM 136.6 mmol/L (137-145)
[2017-11-06 06:21] LABS: ANION GAP 6 (5-19)
[2017-11-06] MEDS: HEPARIN SOD (PORCINE) 5,000 UNIT/ML 1 ML SYRINGE SUBCUT SCH ×3 (06:34→21:56)
[2017-11-06] MEDS: CHLORPHENIRAMINE MALEATE 4 MG TABLET PO SCH ×4 (06:37→23:46)
[2017-11-06] MEDS: PREDNISONE 20 MG TABLET PO SCH ×2 (09:12→17:46)
[2017-11-06] MEDS: METOPROLOL TARTRATE 50 MG TABLET PO SCH ×2 (09:12→21:56)
[2017-11-06] MEDS: LEVOFLOXACIN 750 MG TABLET PO SCH (09:12)
[2017-11-06] MEDS: FLUTICASONE NASAL SPRAY 50 MCG/SPRY 120 SPRAY/16 GM NASL SCH ×2 (09:14→21:56)
[2017-11-06] MEDS: LIDOCAINE 5% (700 MG) TRANSDERMAL ADH..PATCH TP SCH (09:17)
[2017-11-06 10:42] LABS: VANCOMYCIN,TROUGH < 5.0 ug/mL (5.0-20.0)
--- NOTE | 2017-11-06 15:59 | RADIOLOGY REPORT (SQ) ---
EXAM DESCRIPTION: CTA CHEST COMPLETED DATE/TIME: 11/06/2017 3:47 pm REASON FOR STUDY: Rule out PE, SOB/tachycardic COMPARISON: 06/14/2016 TECHNIQUE: CT scan of the chest performed using helical scanning technique with dynamic intravenous contrast injection. Images reviewed with lung, soft tissue and bone windows. Reconstructed coronal and sagittal MPR images reviewed. Additional 3 dimensional post-processing performed to develop Maximal Intensity Projection images (CT P). All images stored on PACS. All CT scanners at this facility use dose modulation, iterative reconstruction, and/or weight based d osing when appropriate to reduce radiation dose to as low as reasonably achievable (ALARA). [facility]: Dose Right [facility]: CareDose [facility]: Dose Right [facility]: Teradose 4D [facility]: Next Performance CONTRAST TYPE AND DOSE: contrast/concentration: Isovue 350.00 mg/ml; Total Contrast Delivered: 69.0 ml; Total Saline Delivered: 110.0 ml Contrast bolus optimized for the pulmonary arteries. Not diagnostic for the aorta. RENAL FUNCTION: GFR > 60. RADIATION DOSE: CT Rad equipment meets quality standard of care and radiation dose reduction techniq ues were employed. CTDIvol: 14.0 - 15.0 mGy. DLP: 533 mGy-cm. . LIMITATIONS: None. FINDINGS: LUNGS AND PLEURA: Patchy subsegmental airspace disease left upper lobe and both lower lobe s. Trace left pleural effusion. AORTA AND GREAT VESSELS: No aneurysm. Contrast bolus not optimized for the aorta. HEART: Pericardial calcification. No pericardial effusion. Moderate to marked coronary artery calcif ications. PULMONARY ARTERIES: No emboli visualized in the main pulmonary arteries or the segmental branches. HILAR AND MEDIASTINAL STRUCTURES: No identified masses or abnormal nodes. HARDWARE: None in the chest. UPPER ABDOMEN: No acute findings. Limited exam. THYROID AND OTHER SOFT TISSUES: No masses. No adenopathy. BONES: No acute findings. 3D MIPS: Confirm above findings. OTHER: No other significant finding. IMPRESSION: 1. No PE. 2. Bilateral airspace disease. In the appropriate clinical setting this is consistent with pneumonia . COMMENT: Quality ID # [id number]: Final reports with documentation of one or more dose reduction techniques (e.g., Automated exposure control, adjustment of the mA and/or kV according to patient size, use of iterative reconstruction technique) TECHNICAL DOCUMENTATION: JOB ID: [id number] [employer]- All Rights Reserved Reading location - IP/workstation name: [email or web address]
--- NOTE | 2017-11-06 18:53 | PDOC PROGRESS REPORT ---
Subjective Progress Note for:: 11/06/17 Subjective:: Mr. Shah is a 77-year-old male with a past medical history of stable CAD, with recent cardiac catheterization 1 month ago, possible COPD and prior episodes of pneumonia who initially presented with progressive shortness of breath, productive cough and fever. Patient was admitted for sepsis secondary to pneumonia. He was initially on BiPAP. No acute event overnight. Patient says his breathing is better but still feels a little short of breath. He appears comfortable on nasal cannula and is saturating well. No fever chills. Upon ambulation, patient became short of breath, tachycardic and desaturated to 85% without O2. He does not use O2 at home. He denies formal diagnosis of COPD. Reason For Visit: SEPIS PNEUMONIA Physical Exam Vital Signs: Temp Pulse Resp BP Pulse Ox 98.6 F 100 18 140/95 H 98 11/06/17 17:13 11/06/17 17:13 11/06/17 17:13 11/06/17 17:13 11/06/17 17:13 Intake & Output 11/05/17 11/06/17 11/07/17 06:59 06:59 06:59 Intake Total 1192 1505 750 Output Total 1050 925 Balance 142 580 750 Weight 201 lb 15.095 oz 191 lb 12.835 oz General appearance: PRESENT: no acute distress, well-developed, well-nourished Head exam: PRESENT: atraumatic, normocephalic Eye exam: PRESENT: conjunctiva pink, EOMI, PERRLA. ABSENT: scleral icterus Ear exam: PRESENT: normal external ear exam Mouth exam: PRESENT: moist, tongue midline Neck exam: ABSENT: carotid bruit, JVD, lymphadenopathy, thyromegaly Respiratory exam: PRESENT: clear to auscultation thong, rhonchi, wheezes - occasional wheeze. ABSENT: rales Cardiovascular exam: PRESENT: RRR. ABSENT: diastolic murmur, rubs, systolic murmur Pulses: PRESENT: normal dorsalis pedis pul Vascular exam: PRESENT: normal capillary refill GI/Abdominal exam: PRESENT: normal bowel sounds, soft. ABSENT: distended, guarding, mass, organolmegaly, rebound, tenderness Rectal exam: PRESENT: deferred Neurological exam: PRESENT: alert, awake, oriented to person, oriented to place , oriented to time, oriented to situation, CN II-XII grossly intact. ABSENT: motor sensory deficit Results Laboratory Results: 11/06/17 04:33 11/06/17 09:45 11/06/17 11/06/17 11/06/17 04:33 04:33 09:45 WBC 8.2 RBC 4.35 Hgb 13.3 L Hct 39.6 MCV 91 MCH 30.6 MCHC 33.6 RDW 14.6 H Plt Count 87 L Seg Neutrophils % Not Reportable Lymphocytes % Not Reportable Monocytes % Not Reportable Eosinophils % Not Reportable Basophils % Not Reportable Absolute Neutrophils Not Reportable Absolute Lymphocytes Not Reportable Absolute Monocytes Not Reportable Absolute Eosinophils Not Reportable Absolute Basophils Not Reportable Sodium 136.6 L Potassium 3.9 Chloride 104 Carbon Dioxide 27 Anion Gap 6 BUN 24 H Creatinine 0.63 0.69 Est GFR ( Amer) > 60 > 60 Est GFR (Non-Af Amer) > 60 > 60 Glucose 136 H Calcium 8.1 L 11/04/17 11/04/17 11/04/17 09:13 09:13 15:48 Creatine Kinase < 20 L < 20 L CK-MB (CK-2) 0.92 Troponin I 0.040 11/04/17 15:48 Creatine Kinase CK-MB (CK-2) 1.09 Troponin I 0.022 Impressions: Shoulder X-Ray 11/04/17 00:00 IMPRESSION: NO RADIOGRAPHIC EVIDENCE OF ACUTE INJURY. Chest X-Ray 11/04/17 02:59 IMPRESSION: Small left basilar atelectasis/pneumonia. Chest/Abdomen CTA 11/06/17 00:00 IMPRESSION: 1. No PE. 2. Bilateral airspace disease. In the appropriate clinical setting this is consistent with pneumonia. Assessment & Plan - Diagnosis (1) Acute hypoxemic respiratory failure Is this a current diagnosis for this admission?: Yes Plan: Secondary to pneumonia and possible COPD exacerbation. On 2L of nasal cannula. Upon ambulation, patient became short of breath, tachycardic and desaturated to 85% without O2. He does not use O2 at home. He denies formal diagnosis of COPD. Will pursue a CTA to rule out PE. (2) Sepsis Qualifiers: Sepsis type: sepsis due to unspecified organism Qualified Code(s): A41.9 - Sepsis, unspecified organism Is this a current diagnosis for this admission?: Yes Plan: Improving. Sepsis secondary to left-sided pneumonia. Lactic acidosis is resolved. Leukocytosis has also resolved. Patient was initially started on vancomycin and cefepime. He has been switched to Levaquin. Cultures have been negative so far. (3) HCAP (healthcare-associated pneumonia) Is this a current diagnosis for this admission?: Yes Plan: Continue levofloxacin. Due to persistent hypoxia, will proceed with chest CTA. He does not use home O2. (4) COPD exacerbation Is this a current diagnosis for this admission?: Yes Plan: On chart review, patient was treated for prior possible COPD exacerbation. Upon questioning, patient denies formal diagnosis of COPD. 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 He does not appear to be on home inhalers and optimal medications for COPD. Continue oral steroids. (5) Coronary artery disease Is this a current diagnosis for this admission?: Yes Plan: Stable. Patient says that he had a recent cardiac cath last month and was told that there are no recurrent remarkable findings requiring intervention. - Time Time Spent with patient: 25-34 minutes
[2017-11-07] MEDS: IPRATROPIUM/ALBUTEROL 0.5-2.5 MG/3 ML AMPUL NEB SCH ×4 (02:04→19:37)
[2017-11-07 05:34] LABS: HEMATOCRIT 40.8 % (37.9-51.0); MEAN CORPUSCULAR HEMOGLOBIN 31.2 pg (27.0-33.4); MEAN CORPUSCULAR HGB CONC 34.2 g/dL (32.0-36.0); MEAN CORPUSCULAR VOLUME 91 fl (80-97); PLATELET COUNT 117 10^3/uL (150-450); RED BLOOD COUNT 4.48 10^6/uL (4.35-5.55); WHITE BLOOD COUNT 8.1 10^3/uL (4.0-10.5)
[2017-11-07 05:48] LABS: ANION GAP 9 (5-19); BLOOD UREA NITROGEN 21 mg/dL (7-20); CALCIUM 8.6 mg/dL (8.4-10.2); CARBON DIOXIDE 26 mmol/L (22-30); CHLORIDE 102 mmol/L (98-107); GLUCOSE 140 mg/dL (75-110); POTASSIUM 4.2 mmol/L (3.6-5.0); SODIUM 137.3 mmol/L (137-145)
[2017-11-07 05:52] LABS: ABSOLUTE LYMPHOCYTES# (MANUAL) 0.3 10^3/uL (0.5-4.7); ABSOLUTE MONOCYTES # (MANUAL) 0.6 10^3/uL (0.1-1.4); BAND NEUTROPHILS % (MANUAL) 1 % (3-5); BASOPHILS % (MANUAL) 0 % (0-2); EOSINOPHILS % (MANUAL) 2 % (0-6); LYMPHOCYTES % (MANUAL) 4 % (13-45); MONOCYTES % (MANUAL) 7 % (3-13); SEGMENTED NEUTROPHILS % (MAN) 86 % (42-78); TOTAL CELLS COUNTED 100
[2017-11-07 05:53] LABS: ANISOCYTOSIS SLIGHT; TOXIC GRANULATION 1+; TOXIC VACUOLATION PRESENT
[2017-11-07 05:54] LABS: BURR CELLS SLIGHT; OVALOCYTES SLIGHT; PLATELET COMMENT ADEQUATE; POIKILOCYTOSIS SLIGHT
[2017-11-07] MEDS: CHLORPHENIRAMINE MALEATE 4 MG TABLET PO SCH ×3 (06:15→17:59)
[2017-11-07] MEDS: HEPARIN SOD (PORCINE) 5,000 UNIT/ML 1 ML SYRINGE SUBCUT SCH ×3 (06:18→21:29)
[2017-11-07] MEDS: PREDNISONE 20 MG TABLET PO SCH ×2 (09:40→17:59)
[2017-11-07] MEDS: LEVOFLOXACIN 750 MG TABLET PO SCH (09:40)
[2017-11-07] MEDS: METOPROLOL TARTRATE 50 MG TABLET PO SCH ×2 (09:40→21:31)
[2017-11-07] MEDS: FLUTICASONE NASAL SPRAY 50 MCG/SPRY 120 SPRAY/16 GM NASL SCH (09:40)
[2017-11-07] MEDS: LIDOCAINE 5% (700 MG) TRANSDERMAL ADH..PATCH TP SCH (09:41)
--- NOTE | 2017-11-07 10:17 | PDOC PROGRESS REPORT ---
Subjective Subjective:: 77-year-old male past medical history of CAD status post recent cardiac catheterization times 1 month, COPD possibly due to tobacco abuse for 40 years. Quit 4 years ago. Patient was admitted for worsening shortness of breath and productive cough. Patient was diagnosed with sepsis possibly due to underlying pneumonia. Initially patient was placed on BiPAP. No acute events overnight, patient stated he is feeling much better, denies any shortness of breath at rest, fever, chills, chest pain, nausea, vomiting, diarrhea or any urinary symptoms. Patient is still drops her SPO2 on ambulation. He drops to high 80s and low 90s accompanied with tachycardia. Patient does not use oxygen at home. Reason For Visit: SEPIS PNEUMONIA Physical Exam Vital Signs: Temp Pulse Resp BP Pulse Ox 97.7 F 84 21 H 128/75 H 94 11/07/17 03:40 11/07/17 07:00 11/07/17 03:40 11/07/17 03:40 11/07/17 03:40 Intake & Output 11/06/17 11/07/17 11/08/17 06:59 06:59 06:59 Intake Total 1505 1105 Output Total 925 625 Balance 580 480 Weight 87 kg 85.8 kg General appearance: PRESENT: no acute distress, well-developed, well-nourished Head exam: PRESENT: atraumatic, normocephalic Eye exam: PRESENT: conjunctiva pink, EOMI, PERRLA. ABSENT: scleral icterus Ear exam: PRESENT: normal external ear exam Mouth exam: PRESENT: moist, tongue midline Neck exam: ABSENT: carotid bruit, JVD, lymphadenopathy, thyromegaly Respiratory exam: PRESENT: clear to auscultation thong. ABSENT: rales, rhonchi, wheezes Cardiovascular exam: PRESENT: RRR. ABSENT: diastolic murmur, rubs, systolic murmur Pulses: PRESENT: normal dorsalis pedis pul Vascular exam: PRESENT: normal capillary refill GI/Abdominal exam: PRESENT: normal bowel sounds, soft. ABSENT: distended, guarding, mass, organolmegaly, rebound, tenderness Rectal exam: PRESENT: deferred Extremities exam: PRESENT: full ROM. ABSENT: calf tenderness, clubbing, pedal edema Neurological exam: PRESENT: alert, awake, oriented to person, oriented to place , oriented to time, oriented to situation, CN II-XII grossly intact. ABSENT: motor sensory deficit Psychiatric exam: PRESENT: appropriate affect, normal mood. ABSENT: homicidal ideation, suicidal ideation Skin exam: PRESENT: dry, intact, warm. ABSENT: cyanosis, rash Results Laboratory Results: 11/07/17 04:12 11/07/17 04:12 11/06/17 11/07/17 11/07/17 09:45 04:12 04:12 WBC 8.1 RBC 4.48 Hgb 14.0 Hct 40.8 MCV 91 MCH 31.2 MCHC 34.2 RDW 15.0 H Plt Count 117 L Seg Neutrophils % Not Reportable Lymphocytes % Not Reportable Monocytes % Not Reportable Eosinophils % Not Reportable Basophils % Not Reportable Absolute Neutrophils Not Reportable Absolute Lymphocytes Not Reportable Absolute Monocytes Not Reportable Absolute Eosinophils Not Reportable Absolute Basophils Not Reportable Sodium 137.3 Potassium 4.2 Chloride 102 Carbon Dioxide 26 Anion Gap 9 BUN 21 H Creatinine 0.69 0.68 Est GFR ( Amer) > 60 > 60 Est GFR (Non-Af Amer) > 60 > 60 Glucose 140 H Calcium 8.6 11/04/17 11/04/17 11/04/17 09:13 09:13 15:48 Creatine Kinase < 20 L < 20 L CK-MB (CK-2) 0.92 Troponin I 0.040 11/04/17 15:48 Creatine Kinase CK-MB (CK-2) 1.09 Troponin I 0.022 Impressions: Shoulder X-Ray 11/04/17 00:00 IMPRESSION: NO RADIOGRAPHIC EVIDENCE OF ACUTE INJURY. Chest X-Ray 11/04/17 02:59 IMPRESSION: Small left basilar atelectasis/pneumonia. Chest/Abdomen CTA 11/06/17 00:00 IMPRESSION: 1. No PE. 2. Bilateral airspace disease. In the appropriate clinical setting this is consistent with pneumonia. Assessment & Plan - Diagnosis (1) Acute respiratory failure with hypoxia Is this a current diagnosis for this admission?: Yes Plan: Possibly secondary to underlying pneumonia and COPD exacerbation. Currently on 2 L of oxygen. Patient drops his SPO2 to 80s on ambulation. He does not use oxygen at home. CTA negative for PE on admission. Day 3/5 of p.o. steroids. Plan is to discharge patient on home O2 to follow-up with PCP. (2) Pneumonia Qualifiers: Pneumonia type: due to unspecified organism Laterality: left Lung location: lower lobe of lung Qualified Code(s): J18.1 - Lobar pneumonia, unspecified organism Is this a current diagnosis for this admission?: Yes Plan: Possibly HCAP. Improving. Influenza A/B and cultures negative. White blood cells within normal limits. Anion gap within normal limits. Patient initially was started on vancomycin and cefepime. Switched to p.o. levofloxacin yesterday. Day 2/7 of levofloxacin. (3) Sepsis Qualifiers: Sepsis type: sepsis due to unspecified organism Qualified Code(s): A41.9 - Sepsis, unspecified organism Is this a current diagnosis for this admission?: Yes Plan: Improving. Cultures negative. White blood cells within normal limits. Patient received vancomycin and cefepime IV on admission. Switched to levofloxacin yesterday. (4) Coronary artery disease Is this a current diagnosis for this admission?: Yes Plan: Status post recent negative cardiac catheterization as per pt. No intervention was done. Continue metoprolol, aspirin, lisinopril. 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 Currently on gemfibrozil and niacin. (5) COPD exacerbation Is this a current diagnosis for this admission?: Yes Plan: Denies any history of COPD. However patient has been smoking for 40 years. Quit 4 years ago. He also mentions that he had a recent PFT by his computer support analyst. Not using inhalers at home. Switch to LABA/LAMA and short acting beta agonist as needed. Day 3/5 of oral steroids. Pulmonology on board. Follow-up with PCP. (6) Dyslipidemia Is this a current diagnosis for this admission?: Yes Plan: Patient not on statin due to history of myopathy. Continue gemfibrozil and niacin.
[2017-11-07 10:26] LABS: ARTERIAL BLOOD BASE EXCESS 0.3 mmol/L; ARTERIAL BLOOD H2CO3 1.16 mmol/L (1.05-1.35); ARTERIAL BLOOD HCO3 24.5 mmol/L (20-24); ARTERIAL BLOOD O2 SATURATION 94.8 % (94-98); ARTERIAL BLOOD PCO2 38.7 mmHg (35-45); ARTERIAL BLOOD PH 7.42 (7.35-7.45); ARTERIAL BLOOD PO2 71.8 mmHg (80-100); ARTERIAL BLOOD TOTAL CO2 25.7 mmol/L (23-27)
[2017-11-07 10:56] LABS: ARTERIAL BLOOD FIO2 2L
[2017-11-07] MEDS: LISINOPRIL 5 MG TABLET PO SCH (12:24)
[2017-11-07] MEDS: ASPIRIN 81 MG TABLET, ENT COATED PO SCH (12:24)
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
[2017-11-07] MEDS: GEMFIBROZIL 600 MG TABLET PO SCH (21:31)
[2017-11-07] MEDS: SALMETEROL XINAFOATE DISKUS 50 MCG/1 DOSE 28 DOSE IH SCH (21:33)
[2017-11-08] MEDS: CHLORPHENIRAMINE MALEATE 4 MG TABLET PO SCH ×3 (00:06→12:10)
[2017-11-08] MEDS: IPRATROPIUM/ALBUTEROL 0.5-2.5 MG/3 ML AMPUL NEB SCH ×2 (01:59→08:10)
[2017-11-08 04:42] LABS: HEMOGLOBIN 14.9 g/dL (13.5-17.0); MEAN CORPUSCULAR HEMOGLOBIN 31.1 pg (27.0-33.4); MEAN CORPUSCULAR HGB CONC 34.6 g/dL (32.0-36.0); MEAN CORPUSCULAR VOLUME 90 fl (80-97); PLATELET COUNT 135 10^3/uL (150-450); RED BLOOD COUNT 4.78 10^6/uL (4.35-5.55); RED CELL DISTRIBUTION WIDTH 14.9 % (11.5-14.0); WHITE BLOOD COUNT 8.8 10^3/uL (4.0-10.5)
[2017-11-08 05:09] LABS: ABSOLUTE LYMPHOCYTES# (MANUAL) 0.4 10^3/uL (0.5-4.7); ABSOLUTE MONOCYTES # (MANUAL) 0.4 10^3/uL (0.1-1.4); ABSOLUTE NEUTROPHILS# (MANUAL) 7.8 10^3/uL (1.7-8.2); BAND NEUTROPHILS % (MANUAL) 4 % (3-5); BASOPHILS % (MANUAL) 0 % (0-2); EOSINOPHILS % (MANUAL) 1 % (0-6); LYMPHOCYTES % (MANUAL) 5 % (13-45); MONOCYTES % (MANUAL) 5 % (3-13); SEGMENTED NEUTROPHILS % (MAN) 85 % (42-78); TOTAL CELLS COUNTED 100
[2017-11-08 05:10] LABS: ALANINE AMINOTRANSFERASE 44 U/L (21-72); ALBUMIN 3.3 g/dL (3.5-5.0); ALKALINE PHOSPHATASE 45 U/L (38-126); ANION GAP 7 (5-19); ANISOCYTOSIS SLIGHT; ASPARTATE AMINO TRANSFERASE 26 U/L (17-59); BILIRUBIN,DIRECT 0.5 mg/dL (0.0-0.4); BILIRUBIN,TOTAL 0.6 mg/dL (0.2-1.3); BLOOD UREA NITROGEN 26 mg/dL (7-20); CALCIUM 8.8 mg/dL (8.4-10.2); CARBON DIOXIDE 28 mmol/L (22-30); CHLORIDE 100 mmol/L (98-107); GLUCOSE 134 mg/dL (75-110); PLATELET COMMENT DECREASED; POTASSIUM 4.2 mmol/L (3.6-5.0); SODIUM 135.3 mmol/L (137-145); TOTAL PROTEIN 6.1 g/dL (6.3-8.2)
[2017-11-08] MEDS: HEPARIN SOD (PORCINE) 5,000 UNIT/ML 1 ML SYRINGE SUBCUT SCH ×2 (06:57→13:35)
[2017-11-08] MEDS ORDERED: LEVALBUTEROL HCL NEB 1.25 MG/3 ML AMPUL NEB PRN (09:20)
[2017-11-08] MEDS: LISINOPRIL 5 MG TABLET PO SCH (09:55)
[2017-11-08] MEDS: PREDNISONE 20 MG TABLET PO SCH (09:55)
[2017-11-08] MEDS: METOPROLOL TARTRATE 50 MG TABLET PO SCH (09:55)
[2017-11-08] MEDS: LEVOFLOXACIN 750 MG TABLET PO SCH (09:55)
[2017-11-08] MEDS: GEMFIBROZIL 600 MG TABLET PO SCH (09:55)
[2017-11-08] MEDS: ASPIRIN 81 MG TABLET, ENT COATED PO SCH (09:55)
[2017-11-08] MEDS: SALMETEROL XINAFOATE DISKUS 50 MCG/1 DOSE 28 DOSE IH SCH (09:56)
[2017-11-08] MEDS ORDERED: TIOTROPIUM BROMIDE DPI 5 CAP/KIT (18 MCG/CAP) IH SCH (10:00)
[2017-11-08] MEDS: LIDOCAINE 5% (700 MG) TRANSDERMAL ADH..PATCH TP SCH (10:06)
--- NOTE | 2017-11-08 14:23 | PDOC PROGRESS REPORT ---
Subjective Progress Note for:: 11/08/17 Subjective:: Unchanged Reason For Visit: SEPIS PNEUMONIA Physical Exam Vital Signs: Temp Pulse Resp BP Pulse Ox 98.0 F 102 H 20 121/77 92 11/08/17 11:26 11/08/17 14:00 11/08/17 11:26 11/08/17 11:26 11/08/17 11:26 Intake & Output 11/07/17 11/08/17 11/09/17 06:59 06:59 06:59 Intake Total 1105 1000 355 Output Total 625 800 Balance 480 200 355 Weight 85.8 kg 84.4 kg General appearance: PRESENT: no acute distress, cooperative, disheveled Head exam: PRESENT: atraumatic, normocephalic Eye exam: PRESENT: conjunctiva pale, EOMI. ABSENT: nystagmus, scleral icterus Mouth exam: PRESENT: moist, neck supple, tongue midline Neck exam: ABSENT: carotid bruit, JVD, lymphadenopathy, thyromegaly, tracheal deviation, tracheostomy Respiratory exam: PRESENT: decreased breath sounds, prolonged expiratory phas, rhonchi, unlabored. ABSENT: retraction, stridor Cardiovascular exam: PRESENT: RRR, +S1, +S2 Pulses: PRESENT: normal radial pulses GI/Abdominal exam: PRESENT: soft. ABSENT: tenderness Extremities exam: ABSENT: calf tenderness, clubbing, joint swelling Musculoskeletal exam: ABSENT: deformity, dislocation Neurological exam: PRESENT: awake Skin exam: PRESENT: dry, warm Results Laboratory Results: 11/08/17 04:10 11/08/17 04:10 11/08/17 11/08/17 04:10 04:10 WBC 8.8 RBC 4.78 Hgb 14.9 Hct 43.0 MCV 90 MCH 31.1 MCHC 34.6 RDW 14.9 H Plt Count 135 L Seg Neutrophils % Not Reportable Lymphocytes % Not Reportable Monocytes % Not Reportable Eosinophils % Not Reportable Basophils % Not Reportable Absolute Neutrophils Not Reportable Absolute Lymphocytes Not Reportable Absolute Monocytes Not Reportable Absolute Eosinophils Not Reportable Absolute Basophils Not Reportable Sodium 135.3 L Potassium 4.2 Chloride 100 Carbon Dioxide 28 Anion Gap 7 BUN 26 H Creatinine 0.71 Est GFR ( Amer) > 60 Est GFR (Non-Af Amer) > 60 Glucose 134 H Calcium 8.8 Total Bilirubin 0.6 AST 26 ALT 44 Alkaline Phosphatase 45 Total Protein 6.1 L Albumin 3.3 L 11/04/17 11/04/17 11/04/17 09:13 09:13 15:48 Creatine Kinase < 20 L < 20 L CK-MB (CK-2) 0.92 Troponin I 0.040 11/04/17 15:48 Creatine Kinase CK-MB (CK-2) 1.09 Troponin I 0.022 Impressions: Shoulder X-Ray 11/04/17 00:00 IMPRESSION: NO RADIOGRAPHIC EVIDENCE OF ACUTE INJURY. Chest X-Ray 11/04/17 02:59 IMPRESSION: Small left basilar atelectasis/pneumonia. Chest/Abdomen CTA 11/06/17 00:00 IMPRESSION: 1. No PE. 2. Bilateral airspace disease. In the appropriate clinical setting this is consistent with pneumonia. Assessment & Plan - Diagnosis (1) Acute hypoxemic respiratory failure Is this a current diagnosis for this admission?: Yes Plan: Must have official 6-minute walk (2) COPD exacerbation Is this a current diagnosis for this admission?: Yes Plan: Long-acting beta agonist plus a long acting muscarinic agent short acting beta agonist as needed would not initiate therapy with a inhaled corticosteroid at this time (3) Coronary artery disease Is this a current diagnosis for this admission?: Yes Plan: Status post coronary artery stent has chronic tacky arrhythmia consider cardiology consult
[2017-11-08 15:46] VITALS: BP 116/55
--- NOTE | 2017-11-08 18:45 | PDOC DISCHARGE SUMMARY ---
General - Admit/Disc Date/PCP Admission Date/Primary Care Provider: 11/04/17 04:38 KIA ALCARAZ MD Discharge Date: 11/08/17 - Discharge Diagnosis (1) Acute respiratory failure with hypoxia Is this a current diagnosis for this admission?: Yes (2) Pneumonia Is this a current diagnosis for this admission?: Yes (3) Sepsis Is this a current diagnosis for this admission?: Yes (4) Coronary artery disease Is this a current diagnosis for this admission?: Yes (5) COPD exacerbation Is this a current diagnosis for this admission?: Yes (6) Dyslipidemia Is this a current diagnosis for this admission?: Yes - Additional Information Resuscitation Status: Full Code Discharge Diet: As Tolerated Discharge Activity: Activity As Tolerated Prescriptions: Ipratropium/Albuterol Sulfate [Combivent Respimat 20-100 Mcg] 4 gm IH Q6 30 Days #3 aer.w.adap Levofloxacin [Levaquin 750 mg Tablet] 750 mg PO DAILY 4 Days #4 tablet Prednisone [Deltasone 20 mg Tablet] 20 mg PO BID 3 Days #6 tablet Salmeterol Xinafoate [Serevent Diskus 50 Mcg/Dose 28 Dose/Diskus] 50 mcg IH Q12 30 Days #3 disk Tiotropium [place] [Spiriva Handihaler 5 Cap/Kit (18 Mcg/Cap)] 1 cap IH DAILY 30 Days #3 kit Home Medications: Ascorbic Acid [Vitamin C 500 mg Tablet] 1,000 mg PO DAILY 11/04/17 Aspirin [Adult Low Dose Aspirin EC] 81 mg PO DAILY 11/04/17 Furosemide [Lasix 20 mg Tablet] 20 mg PO DAILY 11/04/17 Gemfibrozil [Lopid 600 mg Tablet] 600 mg PO Q12 11/04/17 Lisinopril [Zestril] 5 mg PO DAILY 11/04/17 Metoprolol Tartrate [Lopressor 50 mg Tablet] 50 mg PO Q12 11/04/17 Multivitamin with Iron [One Daily Multivitamin] 1 tab PO DAILY 11/04/17 Niacin (Inositol Niacinate) [Niacin 500 mg Capsule] 500 mg PO DAILY 11/04/17 Omeprazole 40 mg PO DAILY 11/04/17 Potassium Chloride [Klor-Con 10] 10 meq PO DAILY 11/04/17 Vit A/Vit C/Vit E/Zinc/Copper [Preservision Areds Softgel] 1 cap PO DAILY Vitamin E Mixed [Natural Vitamin E] 400 unit PO DAILY 11/04/17 Ipratropium/Albuterol Sulfate [Combivent Respimat 20-100 Mcg] 4 gm IH Q6 30 Days #3 aer.w.adap 11/08/17 Levofloxacin [Levaquin 750 mg Tablet] 750 mg PO DAILY 4 Days #4 tablet 11/08/17 Prednisone [Deltasone 20 mg Tablet] 20 mg PO BID 3 Days #6 tablet 11/08/17 Salmeterol Xinafoate [Serevent Diskus 50 Mcg/Dose 28 Dose/Diskus] 50 mcg IH Q12 30 Days #3 disk 11/08/17 Tiotropium [place] [Spiriva Handihaler 5 Cap/Kit (18 Mcg/Cap)] 1 cap IH DAILY 30 Days #3 kit 11/08/17 History of Present Illness Patient complains of: Shortness of breath History of Present Illness: YULY RODRIGUEZ is a 77 year old male past medical history of CAD status post recent cardiac catheterization times 1 month, COPD possibly due to tobacco abuse for 40 years. Quit 4 years ago. Patient was admitted for worsening shortness of breath and productive cough. Patient was diagnosed with sepsis possibly due to underlying pneumonia. Initially patient was placed on BiPAP. No acute events overnight, patient stated he is feeling much better, denies any shortness of breath at rest, fever, chills, chest pain, nausea, vomiting, diarrhea or any urinary symptoms. Patient is still drops her SPO2 on ambulation. He drops to high 80s and low 90s accompanied with tachycardia. Patient does not use oxygen at home. Hospital Course Hospital Course: Acute respiratory failure with hypoxia possibly due to underlying pneumonia and COPD exacerbation. Influenza A and B- cultures negative rapid strep negative patient was initially started on vancomycin and cefepime. Switched to p.o. levofloxacin to complete 7 days. Patient was found to be desaturating upon exertion and to low 90s and high 80s. Discharged on 2 L of oxygen to follow-up with his PCP. Received 3 dose of p.o. steroids in the hospital and 2 more days to complete 5 days. For his CAD his beta-venkat aspirin and REID was continued patient has a history of myopathy due to statin use. He was restarted on his gemfibrozil and niacin in the hospital. COPD exacerbation patient was started on nebs p.o. steroids and was discharged on LABA/LAMA and as needed short acting beta agonist. Last follow-up with his PCP and receiving inspector. Physical Exam Vital Signs: Temp Pulse Resp BP Pulse Ox 98.0 F 95 20 116/55 L 92 11/08/17 15:43 11/08/17 15:43 11/08/17 15:43 11/08/17 15:43 11/08/17 15:43 Intake & Output 11/07/17 11/08/17 11/09/17 06:59 06:59 06:59 Intake Total 1105 1000 355 Output Total 625 800 Balance 480 200 355 Weight 85.8 kg 84.4 kg General appearance: PRESENT: no acute distress, well-developed, well-nourished Head exam: PRESENT: atraumatic, normocephalic Eye exam: PRESENT: conjunctiva pink, EOMI, PERRLA. ABSENT: scleral icterus Ear exam: PRESENT: normal external ear exam Mouth exam: PRESENT: moist, tongue midline Neck exam: ABSENT: carotid bruit, JVD, lymphadenopathy, thyromegaly Respiratory exam: PRESENT: clear to auscultation thong. ABSENT: rales, rhonchi, wheezes Cardiovascular exam: PRESENT: RRR. ABSENT: diastolic murmur, rubs, systolic murmur Pulses: PRESENT: normal dorsalis pedis pul Vascular exam: PRESENT: normal capillary refill GI/Abdominal exam: PRESENT: normal bowel sounds, soft. ABSENT: distended, guarding, mass, organolmegaly, rebound, tenderness Rectal exam: PRESENT: deferred Extremities exam: PRESENT: full ROM. ABSENT: calf tenderness, clubbing, pedal edema Neurological exam: PRESENT: alert, awake, oriented to person, oriented to place , oriented to time, oriented to situation, CN II-XII grossly intact. ABSENT: motor sensory deficit Psychiatric exam: PRESENT: appropriate affect, normal mood. ABSENT: homicidal ideation, suicidal ideation Skin exam: PRESENT: dry, intact, warm. ABSENT: cyanosis, rash Results Laboratory Results: 11/08/17 04:10 11/08/17 04:10 11/08/17 11/08/17 04:10 04:10 WBC 8.8 RBC 4.78 Hgb 14.9 Hct 43.0 MCV 90 MCH 31.1 MCHC 34.6 RDW 14.9 H Plt Count 135 L Seg Neutrophils % Not Reportable Lymphocytes % Not Reportable Monocytes % Not Reportable Eosinophils % Not Reportable Basophils % Not Reportable Absolute Neutrophils Not Reportable Absolute Lymphocytes Not Reportable Absolute Monocytes Not Reportable Absolute Eosinophils Not Reportable Absolute Basophils Not Reportable Sodium 135.3 L Potassium 4.2 Chloride 100 Carbon Dioxide 28 Anion Gap 7 BUN 26 H Creatinine 0.71 Est GFR ( Amer) > 60 Est GFR (Non-Af Amer) > 60 Glucose 134 H Calcium 8.8 Total Bilirubin 0.6 AST 26 ALT 44 Alkaline Phosphatase 45 Total Protein 6.1 L Albumin 3.3 L 11/04/17 11/04/17 11/04/17 09:13 09:13 15:48 Creatine Kinase < 20 L < 20 L CK-MB (CK-2) 0.92 Troponin I 0.040 11/04/17 15:48 Creatine Kinase CK-MB (CK-2) 1.09 Troponin I 0.022 Impressions: Shoulder X-Ray 11/04/17 00:00 IMPRESSION: NO RADIOGRAPHIC EVIDENCE OF ACUTE INJURY. Chest X-Ray 11/04/17 02:59 IMPRESSION: Small left basilar atelectasis/pneumonia. Chest/Abdomen CTA 11/06/17 00:00 IMPRESSION: 1. No PE. 2. Bilateral airspace disease. In the appropriate clinical setting this is consistent with pneumonia. Qualifiers - * PATIENT BEING DISCHARGED WITH ANY OF THE FOLLOWING DIAGNOSIS: No VTE patient discharged on overlapping Therapy?: Yes
== END 2017-11-08 16:30 | disposition home or self-care (01) | DRG 871 ==
LOC: ER 02:50 → EH 04:38 → 3N 07:04
PROVIDERS: ADMIT Internal Medicine; ATTEND Internal Medicine
DX: A41.9 Sepsis, unspecified organism (principal); J96.01 Acute respiratory failure with hypoxia; J96.02 Acute respiratory failure with hypercapnia; J18.9 Pneumonia, unspecified organism; J44.1 Chronic obstructive pulmonary disease with (acute) exacerbation; J44.0 Chronic obstructive pulmonary disease with (acute) lower respiratory infection; I10 Essential (primary) hypertension; I25.10 Atherosclerotic heart disease of native coronary artery without angina pectoris; I25.2 Old myocardial infarction; Z87.891 Personal history of nicotine dependence; Z79.82 Long term (current) use of aspirin; Z79.52 Long term (current) use of systemic steroids; Z79.899 Other long term (current) drug therapy
CPT/HCPCS: 36415; 71045; 71275; 80048; 80053; 80202; 81001; 82550; 82553; 82565; 82803; 82962; 83605; 83880; 84484; 85025; 85610; 87040; 87086; 87804; 90686; 93005; 93010; 94640; 94660; 94667; 94668; 94799; 96374; 96375; 99291; J0692; J1644; J1956; J2920; J2930; J3010; J3370; J3490; J7060; J7512; J7620

== ENCOUNTER 2018-02-26 16:40 | Emergency (ER) | payer MEDICARE, OTHER ==
[2018-02-26] MEDS ORDERED: IPRATROPIUM/ALBUTEROL 0.5-2.5 MG/3 ML AMPUL NEB ONE ×2 (17:25→21:00)
--- NOTE | 2018-02-26 17:25 | ER Document Report ---
ED Medical Screen (RME) - General Chief Complaint: Cough Stated Complaint: CONGESTION, COUGH Time Seen by Provider: 02/26/18 17:16 Primary Care Provider: KIA ALCARAZ MD [Primary Care Provider] - Follow up as needed Mode of Arrival: Ambulatory Information source: Patient Notes: This is a 77-year-old man with a history of COPD, respiratory failure and sepsis with pneumonia who presents to the emergency room shortness of breath, wheezing, productive cough. Patient states he has had similar episodes to this with pneumonia. TRAVEL OUTSIDE OF THE [place] IN LAST 30 DAYS: No - Related Data Allergies/Adverse Reactions: codeine [Codeine] Allergy (Unknown, Verified 09/28/17 12:57) Sweats Past Medical History - Past Medical History Cardiac Medical History: Reports: Hx Coronary Artery Disease, Hx Heart Attack - 1988 Denies: Hx Hypertension Pulmonary Medical History: Reports: Hx Bronchitis, Hx COPD, Hx Pneumonia Denies: Hx Asthma Neurological Medical History: Denies: Hx Cerebrovascular Accident, Hx Seizures Renal/ Medical History: Denies: Hx Peritoneal Dialysis GI Medical History: Denies: Hx Hepatitis, Hx Hiatal Hernia, Hx Ulcer Musculoskeltal Medical History: Reports Hx Arthritis Psychiatric Medical History: Denies: Hx Depression Infectious Medical History: Denies: Hx Hepatitis Past Surgical History: Reports: Hx Bowel Surgery - part of colon removed. Denies: Hx Open Heart Surgery, Hx Pacemaker - Immunizations Hx Diphtheria, Pertussis, Tetanus Vaccination: Yes History of Influenza Vaccine for 11/2016 - 04/2017 Season: No Physical Exam - Vital signs Vitals: Temp Pulse Resp BP Pulse Ox 97.7 F 95 16 141/72 H 88 L 02/26/18 16:47 02/26/18 16:47 02/26/18 16:47 02/26/18 16:47 02/26/18 16:47 Course - Vital Signs Vital signs: Temp Pulse Resp BP Pulse Ox 97.7 F 95 20 141/72 H 88 L 02/26/18 16:47 02/26/18 16:47 02/26/18 17:15 02/26/18 16:47 02/26/18 16:47 Doctor's Discharge - Discharge Referrals: KIA ALCARAZ MD [Primary Care Provider] - Follow up as needed
--- NOTE | 2018-02-26 18:00 | RADIOLOGY REPORT (SQ) ---
EXAM DESCRIPTION: CHEST SINGLE VIEW COMPLETED DATE/TIME: 02/26/2018 5:52 pm REASON FOR STUDY: sob COMPARISON: 09/28/2017 EXAM PARAMETERS: NUMBER OF VIEWS: One view. TECHNIQUE: Single frontal radiographic view of the chest acquired. RADIATION DOSE: NA LIMITATIONS: None. FINDINGS: LUNGS AND PLEURA: Scattered perihilar parenchymal opacities. No effusions. No pneumothor ax. MEDIASTINUM AND HILAR STRUCTURES: No masses. Contour normal. HEART AND VASCULAR STRUCTURES: Heart normal in size. Normal vasculature. BONES: No acute findings. HARDWARE: None in the chest. OTHER: No other significant finding. IMPRESSION: Perihilar pneumonitis. TECHNICAL DOCUMENTATION: JOB ID: [id number] [employer]- All Rights Reserved Reading location - IP/workstation name: [email or web address]
[2018-02-26 18:09] LABS: HEMATOCRIT 45.8 % (37.9-51.0); HEMOGLOBIN 15.1 g/dL (13.5-17.0); MEAN CORPUSCULAR HEMOGLOBIN 29.7 pg (27.0-33.4); MEAN CORPUSCULAR VOLUME 90 fl (80-97); PLATELET COUNT 180 10^3/uL (150-450); RED BLOOD COUNT 5.09 10^6/uL (4.35-5.55); RED CELL DISTRIBUTION WIDTH 13.5 % (11.5-14.0); WHITE BLOOD COUNT 16.2 10^3/uL (4.0-10.5)
[2018-02-26 18:23] LABS: ALANINE AMINOTRANSFERASE 25 U/L (21-72); ALBUMIN 4.4 g/dL (3.5-5.0); ALKALINE PHOSPHATASE 79 U/L (38-126); ANION GAP 7 (5-19); ASPARTATE AMINO TRANSFERASE 20 U/L (17-59); BILIRUBIN,DIRECT 0.2 mg/dL (0.0-0.4); BILIRUBIN,TOTAL 0.6 mg/dL (0.2-1.3); BLOOD UREA NITROGEN 21 mg/dL (7-20); CALCIUM 9.2 mg/dL (8.4-10.2); CARBON DIOXIDE 29 mmol/L (22-30); CHLORIDE 102 mmol/L (98-107); CREATINE KINASE < 20 U/L (55-170); GLUCOSE 106 mg/dL (75-110); POTASSIUM 4.4 mmol/L (3.6-5.0); SODIUM 137.8 mmol/L (137-145); TOTAL PROTEIN 7.3 g/dL (6.3-8.2)
[2018-02-26 18:35] LABS: ABSOLUTE MONOCYTES # (MANUAL) 1.1 10^3/uL (0.1-1.4); ABSOLUTE NEUTROPHILS# (MANUAL) 14.1 10^3/uL (1.7-8.2); BAND NEUTROPHILS % (MANUAL) 2 % (3-5); BASOPHILS % (MANUAL) 0 % (0-2); EOSINOPHILS % (MANUAL) 0 % (0-6); LYMPHOCYTES % (MANUAL) 4 % (13-45); MONOCYTES % (MANUAL) 7 % (3-13); SEGMENTED NEUTROPHILS % (MAN) 85 % (42-78); TOTAL CELLS COUNTED 100; TROPONIN I < 0.012 ng/mL
[2018-02-26 18:40] LABS: OVALOCYTES SLIGHT; POIKILOCYTOSIS SLIGHT; TOXIC GRANULATION SLIGHT
[2018-02-26 18:41] LABS: PLATELET COMMENT ADEQUATE; PLATELET LARGE PRESENT
[2018-02-26] MEDS ORDERED: PREDNISONE 20 MG TABLET PO ONE (21:00)
--- NOTE | 2018-02-26 21:07 | ER Document Report ---
ED Respiratory Problem - General Chief Complaint: Cough Stated Complaint: CONGESTION, COUGH Time Seen by Provider: 02/26/18 17:16 Primary Care Provider: KIA ALCARAZ MD [Primary Care Provider] - Follow up as needed Mode of Arrival: Ambulatory Notes: Patient is a 77-year-old male presents to the emergency department for generalized cough congestion and subjective fever since Monday. Patient states he was to a anthropology professor about a month ago. States at that time he was placed on oxygen 2 L/min at night. Patient states at that time the anthropology professor also gave him a prescription for azithromycin and prednisone. Patient states the anthropology professor told him to keep the azithromycin and the prednisone in his medicine cabinet and to take it should he develop cough, congestion, fever. Patient states he has taken the full course of azithromycin and has only taken 2 doses of prednisone. In examining patient's prednisone prescription it appears to be a 20 mg tab daily. Patient states his normal oxygen saturation is around 93% Patient states he was worried this evening because he was "coughing up some yellow stuff." Patient states he was admitted to this hospital in October of last year for septic pneumonia. States he was concerned that was happening again which is why he presents to the emergency room. Patient states he has been doing half an albuterol treatment Once in the morning and once in the evening As prescribed by his anthropology professor. Past medical history: COPD, hyperlipidemia, hypertension, coronary artery disease Medications: Lisinopril, metoprolol, Lasix, potassium, aspirin Allergies: Codeine TRAVEL OUTSIDE OF THE [place] IN LAST 30 DAYS: No - Related Data Allergies/Adverse Reactions: codeine [Codeine] Allergy (Unknown, Verified 09/28/17 12:57) Sweats Past Medical History - General Information source: Patient - Social History Smoking Status: Former Smoker Family History: Hypertension Patient has suicidal ideation: No Patient has homicidal ideation: No - Past Medical History Cardiac Medical History: Reports: Hx Coronary Artery Disease, Hx Heart Attack - 1988 Denies: Hx Hypertension Pulmonary Medical History: Reports: Hx Bronchitis, Hx COPD, Hx Pneumonia Denies: Hx Asthma Neurological Medical History: Denies: Hx Cerebrovascular Accident, Hx Seizures Renal/ Medical History: Denies: Hx Peritoneal Dialysis GI Medical History: Denies: Hx Hepatitis, Hx Hiatal Hernia, Hx Ulcer Musculoskeletal Medical History: Reports Hx Arthritis Psychiatric Medical History: Denies: Hx Depression Infectious Medical History: Denies: Hx Hepatitis Past Surgical History: Reports: Hx Bowel Surgery - part of colon removed. Denies: Hx Open Heart Surgery, Hx Pacemaker - Immunizations Hx Diphtheria, Pertussis, Tetanus Vaccination: Yes Review of Systems - Review of Systems Constitutional: See HPI EENT: See HPI Cardiovascular: denies: Chest pain, Palpitations, Heart racing Respiratory: See HPI Gastrointestinal: No symptoms reported Genitourinary: No symptoms reported Male Genitourinary: No symptoms reported Musculoskeletal: No symptoms reported Skin: No symptoms reported Hematologic/Lymphatic: No symptoms reported Neurological/Psychological: No symptoms reported Physical Exam - Vital signs Vitals: Temp Pulse Resp BP Pulse Ox 97.7 F 95 16 141/72 H 88 L 02/26/18 16:47 02/26/18 16:47 02/26/18 16:47 02/26/18 16:47 02/26/18 16:47 - Notes Notes: GENERAL: Alert, interacts well. No acute distress. HEAD: Normocephalic, atraumatic. No frontal or maxillary sinus tenderness noted EYES: Pupils equal, round, and reactive to light. Extraocular movements intact. ENT: Oral mucosa moist, tongue midline. Nares patent, no nasal septal hematoma, TM's intact, nonerythematous, nonbulging bilaterally. Pharynx within normal limits, no palatal petechiae or exudate noted NECK: Full range of motion. Supple. Trachea midline. No lymphadenopathy appreciated LUNGS: minor expiratory wheeze heard bilateral bases, apices clear no rales, or rhonchi. No respiratory distress. HEART: Regular rate and rhythm. No murmur ABDOMEN: Soft, non-tender. Non-distended. Bowel sounds present in all 4 quadrants. EXTREMITIES: Moves all 4 extremities spontaneously. No edema, normal radial and dorsalis pedis pulses bilaterally. No cyanosis. BACK: no cervical, thoracic, lumbar midline tenderness. No saddle anesthesia, normal distal neurovascular exam. NEUROLOGICAL: Alert and oriented x3. Normal speech. cranial nerves II through XII grossly intact PSYCH: Normal affect, normal mood. SKIN: Warm, dry, normal turgor. No rashes or lesions noted. Course - Re-evaluation Re-evalutation: 02/26/18 21:08 Patient's labs do show a leukocytosis of 16.2, no signs of anemia, no signs of electrolyte abnormalities. Patient continues to deny chest pain. States he never had any chest pain just the cough, congestion, slight increase in his respiratory distress. Patient's troponin which was ordered from the [employer] provider is negative. Patient's EKG shows a sinus rhythm with a right bundle branch block, QTC 482 Patient's chest x-ray does show perihilar pneumonitis patient was given 1 more DuoNeb treatment in the emergency department and a dose of prednisone. Patient's arrival SPO2 88% not on 02. Pt. was ambulated in the emergency room. Staff states at one point in time his oxygen saturation went down to 89% but quickly returns to 94%. States at no point in time that the patient gets tachypneic or state he was having any trouble breathing. Patient is adamant about being discharged at this time. Discussed use of home albuterol treatments every 4 hours as needed and increasing his daily prednisone for the next 5 days. Patient voices understanding, is stable for discharge, states he will call his anthropology professor and his primary care provider tomorrow for appointments within a week. - Vital Signs Vital signs: Temp Pulse Resp BP Pulse Ox 97.7 F 95 20 141/72 H 88 L 02/26/18 16:47 02/26/18 16:47 02/26/18 17:15 02/26/18 16:47 02/26/18 16:47 - Laboratory Result Diagrams: 02/26/18 17:45 02/26/18 17:45 Laboratory results interpreted by me: 02/26/18 02/26/18 17:45 17:45 WBC 16.2 H Seg Neuts % (Manual) 85 H Band Neutrophils % 2 L Lymphocytes % (Manual) 4 L Abs Neuts (Manual) 14.1 H BUN 21 H Creatine Kinase < 20 L Discharge - Discharge Clinical Impression: Pneumonitis Upper respiratory infection Qualifiers: URI type: unspecified viral URI Qualified Code(s): J06.9 - Acute upper respiratory infection, unspecified Condition: Stable Disposition: HOME, SELF-CARE Instructions: Upper Respiratory Illness ([facility]) Additional Instructions: You have been seen and treated in the emergency department for an inflammation of the lining of your lung. This is typically caused by a virus. There are no signs of bacteria on your chest x-ray. There is no need for any antibiotics at this time. Please make sure you take prescription prednisone as prescribed. Please also make sure you use your albuterol treatments every 4 hours as needed for the next 3 days. Please make sure you call your primary care provider and your anthropology professor in attempts to get an appointment with them within the next 24-48 hours. Please immediately return to the emergency room should you have any increased respiratory distress, chest pain, or any other concerning symptoms. Prescriptions: Prednisone [Deltasone 20 mg Tablet] 3 tab PO DAILY 5 Days tablet Referrals: KIA ALCARAZ MD [Primary Care Provider] - Follow up as needed
[2018-02-27 00:39] VITALS: BP 136/68
--- NOTE | 2018-02-27 07:56 | EKG REPORT ---
SEVERITY:- ABNORMAL ECG - SINUS RHYTHM MULTIFORM VENTRICULAR PREMATURE COMPLEXES PROBABLE LEFT ATRIAL ABNORMALITY RIGHT BUNDLE BRANCH BLOCK INFERIOR INFARCT, AGE INDETERMINATE : Confirmed by: Minna Desouza MD 27-Feb-2018 07:55:51
== END 2018-02-26 23:06 | disposition home or self-care (01) ==
LOC: ER 16:40
DX: J18.9 Pneumonia, unspecified organism (principal); J06.9 Acute upper respiratory infection, unspecified; R50.9 Fever, unspecified; I25.10 Atherosclerotic heart disease of native coronary artery without angina pectoris; J44.9 Chronic obstructive pulmonary disease, unspecified; I25.2 Old myocardial infarction; Z88.6 Allergy status to analgesic agent
CPT/HCPCS: 93005; 94640 ×2; 99284; 36415; 82553; 82550; 85025; 80053; 84484; 83605; 71045; 93010; A9270 ×2; J7512; J7620

== ENCOUNTER 2018-09-04 06:58 | Day surgery (SDC) | payer MEDICARE, OTHER ==
[~2018-09-04 06:58] MED LIST: BUPIVACAINE HCL 0.75% INJ/PF (7.5 MG/1 ML) 10 ML SDV OD PRN; LIDOCAINE 4% INJ/PF (40 MG/ML) 5 ML AMPUL OD PRN; MIDAZOLAM 2 MG/2 ML INJ ONE
[2018-09-04] MEDS: TROPICAMIDE 1% OPH SOLN 3 ML OD PRN ×3 (07:08→07:37)
[2018-09-04] MEDS: TETRACAINE HCL 0.5% OPH SOLN 4 ML OD PRN ×2 (07:08→07:51)
[2018-09-04] MEDS: BESIFLOXACIN HCL 0.6% OPH SUSP 5 ML BOTTLE OD PRN ×4 (07:08→08:21)
[2018-09-04] MEDS: CYCLOPENTOLATE 0.2%/PHENYLEPHRINE 1% OPH SOLN 2 ML OD PRN ×3 (07:09→07:37)
[2018-09-04] MEDS: KETOROLAC TROMETHAMINE 0.45% 4 DROP/0.4 ML DROPERETTE OD PRN ×2 (07:10→07:38)
[2018-09-04] MEDS ORDERED: EPINEPHRINE INJ/PF 1 MG/1 ML AMPULE ONE (07:10)
[2018-09-04] MEDS ORDERED: LIDOCAINE 1% INJ-PF (10 MG/ML) 30 ML SDV ONE (07:10)
[2018-09-04] MEDS ORDERED: CHONDR SU A NA/HYALUR INTRAOC KIT (SURGICARE) ONE (07:10)
[2018-09-04] MEDS: DORZOLAMIDE HCL 2%/TIMOLOL MALEAT 0.5% OPH SOLN 10 ML OD PRN ×2 (08:21)
--- NOTE | 2018-09-04 08:40 | [facility] DISCHARGE SUMMARY E ---
[facility] Discharge Summary NAME: YULY RODRIGUEZ AGE: 78Y ADMITTED: 09/04/2018 DISCHARGED: 09/04/2018 HOSPITAL COURSE: The patient is a 78-year-old gentleman who underwent uneventful cataract extraction with intraocular lens implant right eye on 09/04/2018. He will be discharged to home. He is instructed to resume preoperative medications, take Tylenol as needed for discomfort, to keep his eye shielded, to use moxifloxacin, Prolensa, and prednisolone at 3 p.m. and 8 p.m., and to follow up in my office in 1 day. DICTATING PHYSICIAN: MANAN HANNA M.D. [id number] PHY#: [id number] ID: [id number] JOB#: [id number] ACCT: [id number] cc:MANAN HANNA M.D. >
--- NOTE | 2018-09-04 08:41 | [facility] OPERATIVE REPORT E ---
[facility] Operative Report NAME: YULY RODRIGUEZ AGE: 78Y DATE OF SURGERY: 09/04/2018 ROOM: PREOPERATIVE DIAGNOSIS: Cataract, right eye. POSTOPERATIVE DIAGNOSIS: Cataract, right eye. PROCEDURE PERFORMED: Phacoemulsification with posterior chamber intraocular lens, right eye. SURGEON: MANAN HANNA M.D. ANESTHESIA: Topical with MAC. INDICATIONS FOR SURGERY: Difficulty driving at night. PROCEDURE: The patient was brought to the Operating Room and placed on the operative table. Following tetracaine drops, topical anesthesia was administered. This consisted of instrument wipe pledgets soaked in a solution of 4% Xylocaine mixed with 0.75% Marcaine in a 1:2 ratio. A 2 x 1 cm pledget was placed in the superior fornix. A 1 x 1 cm pledget was placed in the inferior fornix. The eye was patched shut for 5 minutes. The patch was removed. The eye was sterilely prepped and draped in the usual manner. Lid speculum was placed in the eye. The pledgets were removed. 4-0 black silk sutures were placed around the superior and the inferior rectus muscles to be used as traction. A conjunctival peritomy was made at the 10 o'clock position. Hemostasis was obtained with bipolar cautery. A posterior limbal groove was created using a crescent knife and dissected anteriorly towards the cornea. A sharp point blade was used to create a paracentesis site at the 2 o'clock position. A 2.4 mm keratome was used to enter the anterior chamber through the groove. Viscoelastic was injected into the anterior chamber. An anterior capsulotomy was performed using Utrata forceps in a capsulorrhexis fashion. Hydrodissection and hydrodelineation were performed. Phacoemulsification was performed in exvkiw-rwb-djryzya technique. A total of 6.33 CDE phaco time was used. Following this, the I/A unit was used to remove residual cortex. Viscoelastic was injected into the capsular bag. Intraocular lens model SN60WF, 16.5 diopters, serial number [id number] was placed in the capsular bag. The I/A unit was used to remove residual viscoelastic. The wound was seen to be watertight under high and low pressure, and no sutures were placed. The intraocular lens was well centered. The pressure was adjusted in the eye to normal pressure. The 4-0 black silk sutures and lid speculum were removed. The eye was shielded after Besivance drops were placed. The patient tolerated the procedure well and was sent to the Recovery Room in good condition. A drop of Cosopt was placed in the eye at the end of the surgery. DICTATING PHYSICIAN: MANAN HANNA M.D. [id number] PHY#: [id number] ID: [id number] JOB#: [id number] ACCT: [id number] cc:MANAN HANNA M.D. >
== END 2018-09-04 09:03 ==
LOC: SC 06:58
PROVIDERS: ATTEND Ophthalmology
DX: H25.812 Combined forms of age-related cataract, left eye (principal); H53.022 Refractive amblyopia, left eye; H04.123 Dry eye syndrome of bilateral lacrimal glands; H35.371 Puckering of macula, right eye; I49.9 Cardiac arrhythmia, unspecified; Z87.891 Personal history of nicotine dependence; E78.00 Pure hypercholesterolemia, unspecified; Z85.46 Personal history of malignant neoplasm of prostate; Z85.038 Personal history of other malignant neoplasm of large intestine; Z85.028 Personal history of other malignant neoplasm of stomach
CPT/HCPCS: 66984; J2250; J3490 ×5; A9270; J0171; V2632

== ENCOUNTER 2020-01-27 15:33 | Emergency (ER) | payer MEDICARE, OTHER ==
--- NOTE | 2020-01-27 16:27 | ER Document Report ---
ED Medical Screen (RME) - General Chief Complaint: Shortness Of Breath Stated Complaint: SHORT OF BREATH,COUGH Time Seen by Provider: 01/27/20 16:22 Primary Care Provider: KIA ALCARAZ MD [Primary Care Provider] - Follow up as needed Mode of Arrival: Wheelchair Information source: Patient Notes: 79-year-old male presented to ED for cough congestion shortness of breath. He states he has not had any fever. He states he does have a history of COPD and he is a former smoker has not smoked in 6 years. He states he did get a Covid test about 3 hours ago but does not know the results of that yet. He is alert oriented respirations regular nonlabored at this time. We will get chest x-ray blood urine and have him seen by another provider. I have greeted and performed a rapid initial assessment of this patient. A comprehensive ED assessment and evaluation of the patient, analysis of test results and completion of medical decision making process will be conducted by an additional ED providers. TRAVEL OUTSIDE OF THE [place] IN LAST 30 DAYS: No - Related Data Allergies/Adverse Reactions: codeine [Codeine] Allergy (Unknown, Verified 01/27/20 16:22) Sweats Past Medical History - Past Medical History Cardiac Medical History: Reports: Hx Coronary Artery Disease, Hx Heart Attack - 1988, Hx Hypertension Pulmonary Medical History: Reports: Hx Bronchitis, Hx COPD, Hx Pneumonia Denies: Hx Asthma Neurological Medical History: Denies: Hx Cerebrovascular Accident, Hx Seizures Renal/ Medical History: Denies: Hx Peritoneal Dialysis GI Medical History: Denies: Hx Hepatitis, Hx Hiatal Hernia, Hx Ulcer Musculoskeltal Medical History: Reports Hx Arthritis Psychiatric Medical History: Denies: Hx Depression Infectious Medical History: Denies: Hx Hepatitis Past Surgical History: Reports: Hx Bowel Surgery - part of colon removed. Denies: Hx Open Heart Surgery, Hx Pacemaker - Immunizations Hx Diphtheria, Pertussis, Tetanus Vaccination: Yes Physical Exam - Vital signs Vitals: Temp Pulse Resp BP Pulse Ox 98.1 F 100 20 106/62 90 L 01/27/20 04:04 01/27/20 04:04 01/27/20 04:04 01/27/20 04:04 01/27/20 04:04 Course - Vital Signs Vital signs: Temp Pulse Resp BP Pulse Ox 98.1 F 100 20 106/62 90 L 01/27/20 04:04 01/27/20 04:04 01/27/20 04:04 01/27/20 04:04 01/27/20 04:04 Doctor's Discharge - Discharge Referrals: KIA ALCARAZ MD [Primary Care Provider] - Follow up as needed
--- NOTE | 2020-01-27 17:14 | RADIOLOGY REPORT (SQ) ---
EXAM DESCRIPTION: CHEST SINGLE VIEW IMAGES COMPLETED DATE/TIME: 01/27/2020 5:04 pm REASON FOR STUDY: Cough congestion short of breath COMPARISON: 02/26/2018 EXAM PARAMETERS: NUMBER OF VIEWS: One view. TECHNIQUE: Single frontal radiographic view of the chest acquired. RADIATION DOSE: NA LIMITATIONS: None. FINDINGS: LUNGS AND PLEURA: Mildly prominent interstitial markings in the lungs, chronic changes. Stable linear parenchymal densities in the left mid-lower lung zone may represent scar are atelectasi s. No pneumothorax or pleural effusion. MEDIASTINUM AND HILAR STRUCTURES: No masses. Contour normal. HEART AND VASCULAR STRUCTURES: Cardiomegaly, unchanged finding. Pulmonary vascular redistribution ( cephalization). BONES: No acute findings. HARDWARE: None in the chest. OTHER: No other significant finding. IMPRESSION: 1. Chronic changes in the lungs. No acute pulmonary consolidation. 2. Cardiomegaly, stable finding. TECHNICAL DOCUMENTATION: JOB ID: [id number] [employer]- All Rights Reserved Reading location - IP/workstation name: [email or web address]
[2020-01-27 19:33] LABS: HEMATOCRIT 48.7 % (37.9-51.0); HEMOGLOBIN 16.2 g/dL (13.5-17.0); MEAN CORPUSCULAR HGB CONC 33.4 g/dL (32.0-36.0); MEAN CORPUSCULAR VOLUME 87 fl (80-97); PLATELET COUNT 181 10^3/uL (150-450); RED BLOOD COUNT 5.59 10^6/uL (4.35-5.55); RED CELL DISTRIBUTION WIDTH 14.2 % (11.5-14.0); WHITE BLOOD COUNT 7.3 10^3/uL (4.0-10.5)
[2020-01-27 19:43] LABS: ALBUMIN 3.2 g/dL (3.5-5.0); ALKALINE PHOSPHATASE 86 U/L (38-126); ANION GAP 8 (5-19); ASPARTATE AMINO TRANSFERASE 57 U/L (17-59); BILIRUBIN,DIRECT 0.2 mg/dL (0.0-0.4); BILIRUBIN,TOTAL 0.5 mg/dL (0.2-1.3); BLOOD UREA NITROGEN 23 mg/dL (7-20); CALCIUM 8.3 mg/dL (8.4-10.2); CARBON DIOXIDE 27 mmol/L (22-30); CHLORIDE 101 mmol/L (98-107); GLUCOSE 151 mg/dL (75-110); POTASSIUM 4.3 mmol/L (3.6-5.0); TOTAL PROTEIN 6.8 g/dL (6.3-8.2)
[2020-01-27 19:47] LABS: INTERNATIONAL RATION (INR) 0.95; PROTHROMBIN TIME 12.9 SEC (11.4-15.4)
--- NOTE | 2020-01-27 19:49 | ER Document Report ---
Entered by LUIZA LITTLE SCRIBE 01/27/20 1857 Acting as scribe for:YAN MARR DO ED General - General Chief Complaint: Shortness Of Breath Stated Complaint: SHORT OF BREATH,COUGH Time Seen by Provider: 01/27/20 16:22 Primary Care Provider: KIA ALCARAZ MD [Primary Care Provider] - 01/28/20 Mode of Arrival: Wheelchair Information source: Patient Notes: This 79 year old male patient presents to the emergency department today with complaints of a one week history of shortness of breath and congestion. Patient reports that he had a virtual visit with his doctor 3-4 days ago and he was prescribed prednisone and antibiotics but he has not noticed any change in his symptoms. Patient reports he is on 2 L of oxygen at night only. TRAVEL OUTSIDE OF THE [place] IN LAST 30 DAYS: No - Related Data Allergies/Adverse Reactions: codeine [Codeine] Allergy (Unknown, Verified 01/27/20 16:22) Sweats Home Medications: METOPROLOL. ENTRESTO. CIPRO. PREDNISONE. ISOSORBIDE. ATORVASTATIN. LASIX. OMEPRAZOLE. POTASSIUM Past Medical History - General Information source: Patient - Social History Smoking Status: Former Smoker - quit 6 years ago Chew tobacco use (# tins/day): No Frequency of alcohol use: None Drug Abuse: None Lives with: Family Family History: Reviewed & Not Pertinent, Hypertension Patient has homicidal ideation: No - Past Medical History Cardiac Medical History: Reports: Hx Congestive Heart Failure, Hx Coronary Artery Disease, Hx Heart Attack - 1988, Hx Hypertension Pulmonary Medical History: Reports: Hx Bronchitis, Hx COPD, Hx Pneumonia Musculoskeletal Medical History: Reports Hx Arthritis Past Surgical History: Reports: Hx Bowel Surgery - part of colon removed - Immunizations Hx Diphtheria, Pertussis, Tetanus Vaccination: Yes Review of Systems - Review of Systems Constitutional: No symptoms reported EENT: See HPI, Nose congestion Cardiovascular: No symptoms reported Respiratory: See HPI, Short of breath Gastrointestinal: No symptoms reported Genitourinary: No symptoms reported Male Genitourinary: No symptoms reported Musculoskeletal: No symptoms reported Skin: No symptoms reported Hematologic/Lymphatic: No symptoms reported Neurological/Psychological: No symptoms reported -: Yes All other systems reviewed and negative Physical Exam - Vital signs Vitals: Temp Pulse Resp BP Pulse Ox 98.1 F 100 20 106/62 90 L 01/27/20 04:04 01/27/20 04:04 01/27/20 04:04 01/27/20 04:04 01/27/20 04:04 - Notes Notes: Physical Exam: General: Alert, appears frail. HEENT: Normocephalic. Atraumatic. PERRL. Extraocular movements intact. Oropharynx clear. Neck: Supple. Non-tender. Respiratory: No respiratory distress. Diminished breath sounds in the bases bilaterally. Fine bibasilar rales. Cardiovascular: Regular rate and rhythm. Abdominal: Normal Inspection. Non-tender. No distension. Normal Bowel Sounds. Back: No gross abnormalities. Extremities: Moves all four extremities. Upper extremities: Normal inspection. Normal ROM. Lower extremities: Normal inspection. No edema. Normal ROM. Neurological: Normal cognition. AAOx4. Normal speech. Psychological: Normal affect. Normal Mood. Skin: Warm. Dry. Normal color. Course - Re-evaluation Re-evalutation: 01/27/20 22:12 MDM 79 year old with a bit of cardiomyopathy and sob with exertion jennifer over the past week. Cough that is nonproductive and alburerol seems to help some. No fever. has similar and he has tested + for covid 19. He contacted his pcp and was placed on prednisone for 3 days and amoxicillin. It does not seem to have helped much he tells me. Just feels bad in general. No chest pain. No swelling. Appetite is fair. Energy level is poor. 01/27/20 22:27 We discussed pt being admitted here vs going home. He would like to attempt going home and has O2 at home. He understands and we have carefully discussed return precautions. - Vital Signs Vital signs: Temp Pulse Resp BP Pulse Ox 98.7 F 100 18 137/79 H 92 01/27/20 22:22 01/27/20 04:04 01/27/20 22:16 01/27/20 22:16 01/27/20 22:16 - Laboratory Results Result Diagrams: 01/27/20 17:20 01/27/20 17:20 Laboratory Results Interpreted: 01/27/20 01/27/20 01/27/20 17:20 17:20 17:20 RBC 5.59 H RDW 14.2 H Seg Neuts % (Manual) 88 H Lymphocytes % (Manual) 3 L Abs Lymphs (Manual) 0.2 L Sodium 135.8 L BUN 23 H Glucose 151 H Calcium 8.3 L ALT 57 H C-Reactive Protein NT-Pro-B Natriuret Pep 744 H Albumin 3.2 L 01/27/20 17:20 RBC RDW Seg Neuts % (Manual) Lymphocytes % (Manual) Abs Lymphs (Manual) Sodium BUN Glucose Calcium ALT C-Reactive Protein 34.3 H NT-Pro-B Natriuret Pep Albumin Critical Laboratory Results Reviewed: No Critical Results - Radiology Results Critical Radiology Results Reviewed: No Critical Results - EKG Interpretation by Me EKG shows normal: Sinus rhythm Rate: Normal Rhythm: NSR [place]/QRS: Left axis deviation - NSR Left axis [address] elevation or depression my intepretation. Discharge - Discharge Clinical Impression: COPD exacerbation, COVID-19, Acute and chronic respiratory failure with hypoxia Condition: Stable Disposition: HOME, SELF-CARE Instructions: COVID-19 Guidance for Persons Under Investigation, Chronic Obstructive Lung Disease ([facility]) Additional Instructions: You tested positive for Covid 19 and have coronovirus. Take the medicine as directed. Please return here for chest pain or shortness of breath or other problems or concerns. Your medicine was sent to [facility] in [place]. Take 1 gram of vitamin C daily. Take 2 baby aspirin - 162 mg - by mouth daily. Prescriptions: Prednisone 10 mg PO DAILY #21 tablet Zinc [Zinc Chelated] 50 mg PO DAILY #14 tablet Azithromycin [Zithromax 250 mg Tablet] 250 mg PO ASDIR PRN #5 tablet PRN Reason: Referrals: KIA ALCARAZ MD [Primary Care Provider] - 01/28/20 I personally performed the services described in the documentation, reviewed and edited the documentation which was dictated to the scribe in my presence, and it accurately records my words and actions.
[2020-01-27 20:09] LABS: ABSOLUTE LYMPHOCYTES# (MANUAL) 0.2 10^3/uL (0.5-4.7); ABSOLUTE MONOCYTES # (MANUAL) 0.7 10^3/uL (0.1-1.4); ANISOCYTOSIS 1+; BASOPHILS % (MANUAL) 0 % (0-2); EOSINOPHILS % (MANUAL) 0 % (0-6); LYMPHOCYTES % (MANUAL) 3 % (13-45); MONOCYTES % (MANUAL) 9 % (3-13); PLATELET COMMENT ADEQUATE; SEGMENTED NEUTROPHILS % (MAN) 88 % (42-78); TOTAL CELLS COUNTED 100
[2020-01-27] MEDS ORDERED: ALBUTEROL SULFATE 0.083% NEB 2.5 MG/3 ML AMPUL NEB ONE (20:21)
[2020-01-27] MEDS ORDERED: DEXAMETHASONE SOD PHOSPHATE INJ 4 MG/1 ML VIAL IV ONE (22:05)
[2020-01-27 22:22] VITALS: BP 137/79
[2020-01-27] MEDS ORDERED: ASPIRIN 325 MG TABLET PO ONE (22:26)
--- NOTE | 2020-01-28 07:26 | EKG REPORT ---
SEVERITY:- ABNORMAL ECG - SINUS RHYTHM VENTRICULAR TRIGEMINY PROBABLE LEFT ATRIAL ABNORMALITY RIGHT BUNDLE BRANCH BLOCK INFERIOR INFARCT, AGE INDETERMINATE : Confirmed by: Dante Harden MD 28-Jan-2020 07:25:35
== END 2020-01-27 22:42 | disposition home or self-care (01) ==
LOC: ER 15:33
DX: U07.1 COVID-19 (principal); J96.21 Acute and chronic respiratory failure with hypoxia; J44.1 Chronic obstructive pulmonary disease with (acute) exacerbation; R68.89 Other general symptoms and signs; Z88.6 Allergy status to analgesic agent
CPT/HCPCS: 93005; 94640; 99285; 96374; 36415; 87070; 87880; 83735; 85025; 85610; 0241U ×4; 86140; 80053; 84484; 83880; 71045; 93010; A9270 ×2; J1100; C9803; J7613